=== PATIENT | female | born 1935 | race Caucasian/White ===

== ENCOUNTER → 2018-03-04 14:16 | Outpatient (CLI) | payer MEDICARE, SELFPAY ==
--- NOTE | 2018-03-04 | DI.RAD.S_ITS ---
PROCEDURE: XR KNEE LT 3V INDICATIONS: LEFT KNEE PAIN AND SWELLING TECHNIQUE: The views of the knee were acquired. COMPARISON: [facility], , KNEE 3V LEFT, 01/04/2013, 19:29. FINDINGS: Bones: No fractures or dislocations. No suspicious bony lesions. 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 There is mild tricompartmental joint and periarticular osteophyte formation. Soft tissues: No joint effusion. No suspicious soft tissue calcifications. IMPRESSION: 1. 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 Dictated by: Sekou Ledezma [facility] Interpreted: Maxine Garcia MD on 03/04/2018 at 15:19 Approved by: Maxine Garcia M.D. on 03/04/2018 at 16:28
[2018-03-04 15:05] LABS: Add Manual Diff / Slide Review NO; Basophils Percent Auto 1.2 % (0-2); Eosinophils Percent Auto 4.4 % (2-4); Hematocrit 44.1 % (36-46); Hemoglobin 14.8 g/dL (12.0-16.0); Lymphocytes Percent Auto 33.5 % (25-40); Mean Corpuscular HGB Conc 33.5 % (30-36); Mean Corpuscular Hemoglobin 32.2 PG (26-34); Monocytes Percent Auto 12.7 % (3-14); Neutrophils Absolute Auto 2300 /uL (3000-5900); Neutrophils Percent Auto 48.2 % (50-75); Platelet Count 251 X10^3/uL (150-400); Red Blood Cell Count 4.59 X10^6/uL (4.0-5.2); White Blood Cell Count 4.8 X10^3/uL (4.5-11.0)
[2018-03-04 15:36] LABS: BUN Creatinine Ratio 19.1 (6-22); Blood Urea Nitrogen 21 mg/dL (7-17); Calcium 9.4 mg/dL (8.4-10.2); Carbon Dioxide 26 mmol/L (22-32); Chloride 103 mmol/L (98-107); Estimated Glomerular Filt Rate 47.6 mL/min (>60); Glucose 141 mg/dL (80-110); HEMOLYSIS < 15 (0-50); Potassium 4.3 mmol/L (3.4-5.1); Sodium 140 mmol/L (137-145)
== END ==
PROVIDERS: PCP Internal Medicine; Visit Provider Registered Nurse
DX: M25.562 Pain in left knee (principal); Z00.00 Encounter for general adult medical examination without abnormal findings
CPT/HCPCS: 36415; 73562; 80048; 85025

== ENCOUNTER 2018-04-03 02:16 | Emergency (ER) | payer MEDICARE, SELFPAY ==
--- NOTE | 2018-04-03 02:18 | DI.CT.S_ITS ---
PROCEDURE: CT HEAD/BRAIN WO CON INDICATIONS: fall with head injury TECHNIQUE: Noncontrast 4.5 mm thick angled axial sections acquired from the foramen magnum to the vertex, with coronal and sagittal reformats. For radiation dose reduction, the following was used: automated exposure control, adjustment of mA and/or kV according to patient size. COMPARISON: [facility], CT, HEAD WITHOUT CONTRAST, 10/07/2016, 11:44. FINDINGS: Image quality: Excellent. CSF spaces: Basal cisterns are patent. No extra-axial fluid collections. The ventricles are symmetric in size and shape. Brain: No intracranial bleeds or masses. There is marked cerebral volume loss for age, with resultant ventricular and sulcal prominence. There are extensive periventricular and deep white matter chronic small vessel ischemic changes. Encephalomalacia is present within the left frontal lobe consistent with old infarct.. There is intracranial internal carotid artery atherosclerosis. Skull and face: Calvarium and visualized facial bones appear intact, without suspicious lesions. Sinuses: Visualized sinuses and mastoids are clear. IMPRESSION: 1. No acute intracranial findings. 2. Extensive findings likely associated with chronic microvascular ischemic changes and old left frontal infarct. These findings are concordant with the overnight interpretation. Dictated by: Vivian Ga M.D. on 04/03/2018 at 9:14 Approved by: Vivian Ga M.D. on 04/03/2018 at 9:17
[2018-04-03 02:50] VITALS: BP 179/77; PULSE 90; RESP 14; TEMP 36.8; O2SAT 99
--- NOTE | 2018-04-03 02:52 | ED_ITS ---
HPI - Fall General Chief Complaint: Fall Stated Complaint: GLF Time Seen by Provider: 04/03/18 02:18 Source: EMS Mode of arrival: EMS Limitations: no limitations History of Present Illness HPI Narrative: 83-year-old female with dementia presents by EMS from a local nursing facility for evaluation of an unwitnessed fall and head injury. The patient is not anticoagulated denies any injury. She is awake and oriented per her baseline and was sent by the nursing facility for evaluation of head injury. MD complaint: fall Onset (ago): minute(s) Fall from: out of bed Fall witnessed: no Place fall occurred: home Loss of consciousness: unsure Prolonged down time: unclear Location of injury: head Associated symptoms (after fall): denies Related Data Previous Rx's Medication Instructions Recorded ascorbic acid (vitamin C) 500 mg PO QDAY #28 tab 11/26/16 acetaminophen 325 mg PO QIDP PRN #30 tab 12/01/16 lorazepam 1 tab PO BIDP PRN #60 tab 12/04/16 acetaminophen 325 mg PO QIDP PRN #30 tab 04/01/17 Allergies Allergy/AdvReac Type Severity Reaction Status Date / Time lisinopril Allergy Severe AIRWAY Unverified 11/11/17 13:09 BLOCKAGE adhesive Allergy Unknown FROM TAPE Unverified 11/11/17 13:09 Review of Systems Review of Systems All systems reviewed & are unremarkable except as noted in HPI and below Constitutional Denies chills, Denies fever(s), Denies lethargy and Denies weakness Eyes Denies change in vision, Denies eye discharge, Denies irritation and Denies loss of vision ENT Ears, Nose, Mouth, and Throat: Denies change in voice, Denies neck pain and Denies sore throat Cardiovascular Denies chest pain, Denies irregular heart rhythm, Denies lightheadedness, Denies palpitations, Denies dyspnea, Denies dyspnea on exertion and Denies orthopnea Respiratory Denies cough, Denies dyspnea, Denies dyspnea on exertion and Denies wheezing Gastrointestinal Gastrointestinal: Denies abdominal pain, Denies change in bowel habits, Denies diarrhea, Denies nausea and Denies vomiting Genitourinary Denies hematuria, Denies flank pain, Denies urinary incontinence and Denies urinary urgency Musculoskeletal Denies neck pain Integumentary/Breasts Denies pruritus, Denies erythema, Denies rash and Denies wounds Neurologic Denies confusion, Denies loss of vision and Denies weakness Psychiatric Denies anxiety, Denies confusion, Denies depression, Denies homicidal ideation and Denies suicidal ideation Endocrine Denies palpitations Hematologic/Lymphatic Denies easy bruising Allergic/Immunologic Denies wheezing Exam Initial Vital Signs Initial Vital Signs: Vital Signs Temperature 98.2 F 04/03/18 02:50 Pulse Rate 90 04/03/18 02:50 Respiratory Rate 14 04/03/18 02:50 Blood Pressure 179/77 H 04/03/18 02:50 Pulse Oximetry 99 04/03/18 02:50 Const General: cooperative and well developed Nutritional Appearance: well nourished Orientation: alert, awake, oriented x3 and not confused HENMT Head: hematoma (Occiput, small) Ears: external ears normal and TM's normal bilaterally Nose: external nose normal and No nasal discharge Face and sinus: sinuses nontender, face symmetric, no sinus tenderness and No dry mucous membranes Mouth: oral mucosae normal and moist mucous membranes Teeth and gingiva: dentition normal Throat: tonsils normal and uvula midline Eyes General: appearance normal, both eyes and all related structures Eyelids: eyelids normal Conjunctivae: conjunctivae normal Sclera: sclerae normal Pupils: PERRL EOM: EOM intact bilaterally Neck Neck: normal visual inspection, trachea midline, No lymphadenopathy, No midline deformity and No JVD Lymphatic: No lymphedema Chest Chest: normal inspection of the chest Resp Effort & Inspection: normal respiratory effort, able to speak in complete sentences, no respiratory distress and no use of accessory muscles Auscultation: clear to auscultation bilaterally, no rales, no rhonchi and no wheezes Cardio Rate: regular rate Rhythm: regular rhythm Heart Sounds: no click, no gallops, no murmurs and no rubs Pulses: normal peripheral pulses GI Inspection: non-distended Palpation: soft, no hepatosplenomegaly, No guarding, No pulsatile mass and No tender Auscultation: normal bowel sounds Back/Spine/Pelvis Back: No CVA tenderness Cervical Spine: cervical ROM normal and No pain with cervical ROM Thoracic/Lumbar Spine: thoracic and lumbar spine normal to inspection Skin General: no rashes or lesions noted, No jaundice and No petechiae Neuro General: alert and no focal motor deficits Speech: speech normal Extrem General: full ROM, no clubbing, cyanosis or edema, no pedal edema and no calf tenderness Psych Appearance: well kempt Mental Status: mental status grossly normal Attitude: cooperative Thought Content: normal and suicidality Judgment: judgment good [facility] Surgical History History of bladder suspension procedure History of tonsillectomy Family History Father Cancer Scores GCS Josette coma scale eye opening: Spontaneous [place] coma scale verbal response: Orientated [place] coma scale motor response: Obey commands [place] coma scale total score: 15 Course Orders Ordered: ED Orders 04/03/18 02:18 CT head/brain wo con Stat Vital Signs - 8 hr 04/03/18 02:50 Temperature 98.2 F Pulse Rate 90 Respiratory Rate 14 Blood Pressure 179/77 H Pulse Oximetry 99 MDM - Fall Differential Diagnosis Likely syncope, concussion with loss of consciousness and concussion without loss of consciousness Medical Records Attestation: I reviewed the patient's medical records. Imaging Data CT scan - head: Radiologist's impression: No bleed Discharge Plan Departure Patient Disposition: Home Clinical Impression: Hematoma of scalp Instructions: DI for Hematoma (Bruise) Activity Restrictions/Additional Instructions: *You have been diagnosed with [ scalp hematoma] *What to do: * continue to take medications as directed *Follow up with your primary care provider in 2-3 days, call for an appointment. Let them know you were seen in the Emergency Department and that we ask that you be seen in follow up *Return to ER if you should have any new, worsening or concerning symptoms , such as [headache, persistent vomiting, focal neurologic findings consistent with stroke ] Prescriptions: No Action ascorbic acid (vitamin C) 500 MG tablet 500 mg PO QDAY Qty: 28 RF: 0 acetaminophen 325 MG tablet 325 mg PO QIDP PRNQty: 30 RF: 1 lorazepam 0.5 MG tablet 1 tab PO BIDP PRNQty: 60 RF: 0 acetaminophen 325 MG tablet 325 mg PO QIDP PRNQty: 30 RF: 3 Referrals: Anya Jesus MD [Primary Care Provider] -
[2018-04-03 04:03] VITALS: BP 142/98; PULSE 69; RESP 15; O2SAT 100
== END 2018-04-03 04:52 | disposition home or self-care (01) ==
PROVIDERS: Emergency Provider Emergency Medicine; PCP Internal Medicine
DX: S00.03XA Contusion of scalp, initial encounter (principal); W19.XXXA Unspecified fall, initial encounter
CPT/HCPCS: 70450; 99282; 99283

== ENCOUNTER → 2018-08-06 16:38 | Outpatient (CLI) | payer MEDICARE, SELFPAY ==
[2018-08-06 19:06] LABS: Adenovirus F 40/41 Not Detected (Not Detect); Astrovirus Not Detected (Not Detect); Campylobacter Not Detected (Not Detect); Clostridium difficile toxin AB Not Detected (Not Detect); Cryptosporidium Not Detected (Not Detect); Cyclospora cayetanensis Not Detected (Not Detect); Entamoeba histolytica Not Detected (Not Detect); Enteroaggregative E.coli Not Detected (Not Detect); Enteropathogenic E.coli Not Detected (Not Detect); Enterotoxigenic E.coli It/st Not Detected (Not Detect); Giardia lamblia Not Detected (Not Detect); Plesiomonsa shigelloides Not Detected (Not Detect); Salmonella Not Detected (Not Detect); Shiga-like toxin-prod E.coli Not Detected (Not Detect); Shigella/Enteroinvasive E.coli Not Detected (Not Detect); Vibrio Not Detected (Not Detect); Vibrio cholerae Not Detected (Not Detect); Yersinia enterocolitica Not Detected (Not Detect)
[2018-08-06 19:07] LABS: Norovirus GI/GII Detected (Not Detect); Rotavirus A Not Detected (Not Detect); Sapovirus Not Detected (Not Detect)
== END ==
PROVIDERS: PCP Internal Medicine; Visit Provider Registered Nurse
DX: R19.7 Diarrhea, unspecified (principal)
CPT/HCPCS: 87507

== ENCOUNTER → 2018-08-12 10:34 | Outpatient (CLI) | payer MEDICARE, SELFPAY ==
[2018-08-12 12:06] LABS: Add Manual Diff / Slide Review NO; Basophils Percent Auto 0.7 % (0-2); Eosinophils Percent Auto 2.4 % (2-4); Hematocrit 47.9 % (36-46); Hemoglobin 16.2 g/dL (12.0-16.0); Mean Corpuscular HGB Conc 33.8 % (30-36); Mean Corpuscular Hemoglobin 31.6 PG (26-34); Mean Corpuscular Volume 93.4 fL (80-100); Monocytes Percent Auto 12.4 % (3-14); Neutrophils Absolute Auto 2800 /uL (1500-7000); Neutrophils Percent Auto 50.5 % (50-75); Platelet Count 244 X10^3/uL (150-400); Red Blood Cell Count 5.12 X10^6/uL (4.0-5.2); Red Cell Distribution Width 13.4 % (11.6-14.8); White Blood Cell Count 5.6 X10^3/uL (4.5-11.0)
[2018-08-12 12:20] LABS: Blood Urea Nitrogen 19 mg/dL (7-17); Calcium 9.5 mg/dL (8.4-10.2); Carbon Dioxide 24 mmol/L (22-32); Chloride 105 mmol/L (98-107); Glucose 73 mg/dL (80-110); Sodium 139 mmol/L (137-145)
[2018-08-12 12:24] LABS: HEMOLYSIS 67 (0-50); Potassium 4.8 mmol/L (3.4-5.1)
== END ==
PROVIDERS: PCP Internal Medicine; Visit Provider Registered Nurse
DX: R03.0 Elevated blood-pressure reading, without diagnosis of hypertension (principal); R35.0 Frequency of micturition
CPT/HCPCS: 36415; 80048; 85025

== ENCOUNTER 2018-09-07 10:31 | Emergency (ER) | payer MEDICARE, SELFPAY ==
[2018-09-07 10:30] VITALS: BP 153/106; PULSE 74; RESP 19; TEMP 36.7; O2SAT 97
--- NOTE | 2018-09-07 10:35 | ED.HEATRA ---
HPI - Head Injury General Chief complaint: Fall Stated complaint: Fall Time Seen by Provider: 09/07/18 10:33 Source: patient and EMS Mode of arrival: EMS Limitations: no limitations History of Present Illness HPI Narrative: 83-year-old female nonsmoker presents by EMS from a [facility] care facility for evaluation of an unwitnessed fall just prior to arrival. She struck her head but had no loss of consciousness and has had no vomiting. She had initially complained of some right knee and ankle pain but that has since gone. It is unclear how she fell but it seems that maybe she tripped on her walker. She is awake and alert and oriented and takes no blood thinners. Complaint: head injury Onset (ago): minute(s) Mechanism of Injury: unsure Place: home Loss of Consciousness: no Location of injury: frontal Severity: mild Radiation: none Other Injuries: none Associated symptoms: denies other symptoms Related Data Home Medications Medication Instructions Recorded Confirmed Antacid Anti-Gas 30 ml PO Q4H PRN 09/07/18 09/07/18 Enema 133 ml IN PRN PRN 09/07/18 09/07/18 acetaminophen 650 mg PO Q4H PRN MDD 3 gm 09/07/18 09/07/18 acetaminophen 650 mg IN Q4H PRN MDD 3 gm 09/07/18 09/07/18 bisacodyl 10 mg IN PRN PRN 09/07/18 09/07/18 bismuth subsalicylate 30 ml PO PRN PRN 09/07/18 09/07/18 [Pepto-Bismol] dimethicone [Durable Barrier] 1 applic TOPICAL DIRECTED 09/07/18 09/07/18 lorazepam 0.5 tab PO BID PRN 09/07/18 09/07/18 magnesium hydroxide [Milk of 30 ml PO PRN PRN 09/07/18 09/07/18 Magnesia] ondansetron 4 mg PO Q4H PRN 09/07/18 09/07/18 Allergies Allergy/AdvReac Type Severity Reaction Status Date / Time lisinopril Allergy Severe AIRWAY Verified 09/07/18 10:37 BLOCKAGE adhesive Allergy Unknown FROM TAPE Verified 09/07/18 10:37 Review of Systems Constitutional Denies chills, Denies fever(s), Denies lethargy and Denies weakness Eyes Denies change in vision, Denies eye discharge, Denies irritation and Denies loss of vision ENT Ears, Nose, Mouth, and Throat: Denies change in voice, Denies neck pain and Denies sore throat Cardiovascular Denies chest pain, Denies irregular heart rhythm, Denies lightheadedness, Denies palpitations, Denies dyspnea, Denies dyspnea on exertion and Denies orthopnea Respiratory Denies cough, Denies dyspnea, Denies dyspnea on exertion and Denies wheezing Gastrointestinal Gastrointestinal: Denies abdominal pain, Denies change in bowel habits, Denies diarrhea, Denies nausea and Denies vomiting Genitourinary Denies hematuria, Denies flank pain, Denies urinary incontinence and Denies urinary urgency Musculoskeletal Denies neck pain Integumentary/Breasts Denies pruritus, Denies erythema, Denies rash, Reports unusual bruising and Denies wounds Neurologic Denies confusion, Denies loss of vision and Denies weakness Psychiatric Denies anxiety, Denies confusion, Denies depression, Denies homicidal ideation and Denies suicidal ideation Endocrine Denies palpitations Hematologic/Lymphatic Denies easy bruising Allergic/Immunologic Denies wheezing PFSH Surgical History History of bladder suspension procedure History of tonsillectomy Family History Father Cancer Family History Father Cancer Exam Narrative Exam Narrative: GENERAL: 83-year-old female pleasantly confused, alert, GCS 15 HEAD: Mild bruising lateral to right eye and non zygoma but no step-off or crepitance. EYES: Pupils equal round and reactive. Extraocular motions intact. No scleral icterus. No injection or drainage. ENT: Nose without bleeding, purulent drainage or septal hematoma. Throat without erythema, tonsillar hypertrophy or exudate. Uvula midline. Airway patent. NECK: Trachea midline. No JVD or lymphadenopathy. Supple, nontender, no meningeal signs. CARDIOVASCULAR: Regular rate and rhythm without murmurs, gallops, or rubs. RESPIRATORY: Clear to auscultation. Breath sounds equal bilaterally. No wheezes, rales, or rhonchi. GASTROINTESTINAL: Abdomen soft, non-tender, nondistended. No hepato-splenomegaly, or palpable masses. No guarding. EXTREMITIES: Full painless range of motion of right knee and ankle, no ecchymosis, effusion or deformity. No imaging needed BACK: Nontender without deformity or crepitance. No flank tenderness SKIN: No rash or erythema. Initial Vital Signs Initial Vital Signs: Vital Signs Temperature 98.0 F 09/07/18 10:30 Pulse Rate 74 09/07/18 10:30 Respiratory Rate 19 09/07/18 10:30 Blood Pressure 153/106 H 09/07/18 10:30 Pulse Oximetry 97 09/07/18 10:30 Course Orders Ordered: ED Orders 09/07/18 10:43 CT head/brain wo con Stat Reevaluation(s) Reevaluation #1: patient able to ambulate without difficulty, and no apparent pain in knee/ankle Vital Signs - 8 hr 09/07/18 12:21 Pulse Rate 86 Respiratory Rate 14 Blood Pressure 121/74 Pulse Oximetry 96 Discharge Plan Departure Patient Disposition: Home Clinical Impression: Contusion of face, Contusion of knee, Ankle sprain Discharge Date/Time: 09/07/18 12:22 Interventions: ED Discharge Assessment Last Done: 09/07/18 12:21 Instructions: DI for Contusion Activity Restrictions/Additional Instructions: *You have been diagnosed with [fall with facial contusion, knee contusion, ankle sprain ] *What to do: *Take medications as directed *Follow up with your primary care provider in 2-3 days, call for an appointment. Let them know you were seen in the Emergency Department and that we ask that you be seen in follow up *Return to ER if you should have any new, worsening or concerning symptoms Prescriptions: No Action Antacid Anti-Gas 30 ml PO Q4H PRN (Reason: nausea or heartburn) RF: 0 acetaminophen 650 mg Suppository 650 mg IN Q4H MDD 3 gm PRN (Reason: Fever Or Pain) RF: 0 magnesium hydroxide [Milk of Magnesia] 400 mg/5 mL Suspension 30 ml PO PRN PRN (Reason: Constipation) RF: 0 bisacodyl 10 mg Suppository 10 mg IN PRN PRN (Reason: Constipation) RF: 0 bismuth subsalicylate [Pepto-Bismol] 262 mg/15 mL Suspension 30 ml PO PRN PRN (Reason: Diarrhea) RF: 0 ondansetron 4 mg Tablet,Disintegrating 4 mg PO Q4H PRN (Reason: Nausea And Vomiting) RF: 0 dimethicone [Durable Barrier] 1.3 % Cream 1 applic Topical DIRECTED RF: 0 Enema 133 ml IN PRN PRN (Reason: Constipation) RF: 0 acetaminophen 325 MG tablet 650 mg PO Q4H MDD 3 gm PRN (Reason: Fever Or Pain) RF: 0 lorazepam 0.5 MG tablet 0.5 tab PO BID PRN (Reason: Anxiety) RF: 0 Referrals: Anya Jesus MD [Primary Care Provider] -
[2018-09-07 10:37] VITALS: BMI 24.1
--- NOTE | 2018-09-07 10:40 | ED_ITS ---
HPI - Head Injury General Chief complaint: Fall Stated complaint: Fall Time Seen by Provider: 09/07/18 10:33 Source: patient and EMS Mode of arrival: EMS Limitations: no limitations History of Present Illness HPI Narrative: 83-year-old female nonsmoker presents by EMS from a [facility] care facility for evaluation of an unwitnessed fall just prior to arrival. She struck her head but had no loss of consciousness and has had no vomiting. She had initially complained of some right knee and ankle pain but that has since gone. It is unclear how she fell but it seems that maybe she tripped on her walker. She is awake and alert and oriented and takes no blood thinners. Complaint: head injury Onset (ago): minute(s) Mechanism of Injury: unsure Place: home Loss of Consciousness: no Location of injury: frontal Severity: mild Radiation: none Other Injuries: none Associated symptoms: denies other symptoms Related Data Home Medications Medication Instructions Recorded Confirmed Antacid Anti-Gas 30 ml PO Q4H PRN 09/07/18 09/07/18 Enema 133 ml CO PRN PRN 09/07/18 09/07/18 acetaminophen 650 mg PO Q4H PRN MDD 3 gm 09/07/18 09/07/18 acetaminophen 650 mg CO Q4H PRN MDD 3 gm 09/07/18 09/07/18 bisacodyl 10 mg CO PRN PRN 09/07/18 09/07/18 bismuth subsalicylate 30 ml PO PRN PRN 09/07/18 09/07/18 [Pepto-Bismol] dimethicone [Durable Barrier] 1 applic TOPICAL DIRECTED 09/07/18 09/07/18 lorazepam 0.5 tab PO BID PRN 09/07/18 09/07/18 magnesium hydroxide [Milk of 30 ml PO PRN PRN 09/07/18 09/07/18 Magnesia] ondansetron 4 mg PO Q4H PRN 09/07/18 09/07/18 Allergies Allergy/AdvReac Type Severity Reaction Status Date / Time lisinopril Allergy Severe AIRWAY Verified 09/07/18 10:37 BLOCKAGE adhesive Allergy Unknown FROM TAPE Verified 09/07/18 10:37 Review of Systems Constitutional Denies chills, Denies fever(s), Denies lethargy and Denies weakness Eyes Denies change in vision, Denies eye discharge, Denies irritation and Denies loss of vision ENT Ears, Nose, Mouth, and Throat: Denies change in voice, Denies neck pain and Denies sore throat Cardiovascular Denies chest pain, Denies irregular heart rhythm, Denies lightheadedness, Denies palpitations, Denies dyspnea, Denies dyspnea on exertion and Denies orthopnea Respiratory Denies cough, Denies dyspnea, Denies dyspnea on exertion and Denies wheezing Gastrointestinal Gastrointestinal: Denies abdominal pain, Denies change in bowel habits, Denies diarrhea, Denies nausea and Denies vomiting Genitourinary Denies hematuria, Denies flank pain, Denies urinary incontinence and Denies urinary urgency Musculoskeletal Denies neck pain Integumentary/Breasts Denies pruritus, Denies erythema, Denies rash, Reports unusual bruising and Denies wounds Neurologic Denies confusion, Denies loss of vision and Denies weakness Psychiatric Denies anxiety, Denies confusion, Denies depression, Denies homicidal ideation and Denies suicidal ideation Endocrine Denies palpitations Hematologic/Lymphatic Denies easy bruising Allergic/Immunologic Denies wheezing PFSH Surgical History History of bladder suspension procedure History of tonsillectomy Family History Father Cancer Family History Father Cancer Exam Narrative Exam Narrative: GENERAL: 83-year-old female pleasantly confused, alert, GCS 15 HEAD: Mild bruising lateral to right eye and non zygoma but no step-off or crepitance. EYES: Pupils equal round and reactive. Extraocular motions intact. No scleral icterus. No injection or drainage. ENT: Nose without bleeding, purulent drainage or septal hematoma. Throat without erythema, tonsillar hypertrophy or exudate. Uvula midline. Airway patent. NECK: Trachea midline. No JVD or lymphadenopathy. Supple, nontender, no meningeal signs. CARDIOVASCULAR: Regular rate and rhythm without murmurs, gallops, or rubs. RESPIRATORY: Clear to auscultation. Breath sounds equal bilaterally. No wheezes , rales, or rhonchi. GASTROINTESTINAL: Abdomen soft, non-tender, nondistended. No hepato-splenomegaly , or palpable masses. No guarding. EXTREMITIES: Full painless range of motion of right knee and ankle, no ecchymosis, effusion or deformity. No imaging needed BACK: Nontender without deformity or crepitance. No flank tenderness SKIN: No rash or erythema. Initial Vital Signs Initial Vital Signs: Vital Signs Temperature 98.0 F 09/07/18 10:30 Pulse Rate 74 09/07/18 10:30 Respiratory Rate 19 09/07/18 10:30 Blood Pressure 153/106 H 09/07/18 10:30 Pulse Oximetry 97 09/07/18 10:30 Course Orders Ordered: ED Orders 09/07/18 10:43 CT head/brain wo con Stat Reevaluation(s) Reevaluation #1: patient able to ambulate without difficulty, and no apparent pain in knee/ankle Vital Signs - 8 hr 09/07/18 12:21 Pulse Rate 86 Respiratory Rate 14 Blood Pressure 121/74 Pulse Oximetry 96 Discharge Plan Departure Patient Disposition: Home Clinical Impression: Contusion of face, Contusion of knee, Ankle sprain Discharge Date/Time: 09/07/18 12:22 Interventions: ED Discharge Assessment Last Done: 09/07/18 12:21 Instructions: DI for Contusion Activity Restrictions/Additional Instructions: *You have been diagnosed with [fall with facial contusion, knee contusion, ankle sprain ] *What to do: *Take medications as directed *Follow up with your primary care provider in 2-3 days, call for an appointment. Let them know you were seen in the Emergency Department and that we ask that you be seen in follow up *Return to ER if you should have any new, worsening or concerning symptoms Prescriptions: No Action Antacid Anti-Gas 30 ml PO Q4H PRN (Reason: nausea or heartburn) RF: 0 acetaminophen 650 mg Suppository 650 mg CO Q4H MDD 3 gm PRN (Reason: Fever Or Pain) RF: 0 magnesium hydroxide [Milk of Magnesia] 400 mg/5 mL Suspension 30 ml PO PRN PRN (Reason: Constipation) RF: 0 bisacodyl 10 mg Suppository 10 mg CO PRN PRN (Reason: Constipation) RF: 0 bismuth subsalicylate [Pepto-Bismol] 262 mg/15 mL Suspension 30 ml PO PRN PRN (Reason: Diarrhea) RF: 0 ondansetron 4 mg Tablet,Disintegrating 4 mg PO Q4H PRN (Reason: Nausea And Vomiting) RF: 0 dimethicone [Durable Barrier] 1.3 % Cream 1 applic Topical DIRECTED RF: 0 Enema 133 ml CO PRN PRN (Reason: Constipation) RF: 0 acetaminophen 325 MG tablet 650 mg PO Q4H MDD 3 gm PRN (Reason: Fever Or Pain) RF: 0 lorazepam 0.5 MG tablet 0.5 tab PO BID PRN (Reason: Anxiety) RF: 0 Referrals: Anya Jesus MD [Primary Care Provider] -
--- NOTE | 2018-09-07 10:43 | DI.CT.S_ITS ---
PROCEDURE: CT HEAD/BRAIN WO CON INDICATIONS: fall with head injury TECHNIQUE: Noncontrast 4.5 mm thick angled axial sections acquired from the foramen magnum to the vertex, with coronal and sagittal reformats. For radiation dose reduction, the following was used: automated exposure control, adjustment of mA and/or kV according to patient size. COMPARISON: [facility], CT, CT HEAD/BRAIN WO CON, 04/03/2018, 2:28. FINDINGS: Image quality: Excellent. CSF spaces: Basal cisterns are patent. No extra-axial fluid collections. The ventricles are symmetric in size and shape. Brain: No intracranial bleeds or masses. There is mild cerebral volume loss for age, with resultant ventricular and sulcal prominence. There are severe periventricular and deep white matter chronic small vessel ischemic changes. Chronic, small, left parietal infarct is stable compared to prior examination. Small, chronic pontine lacunar infarct is stable. There is intracranial internal carotid artery atherosclerosis. Skull and face: Calvarium and visualized facial bones appear intact, without suspicious lesions. Sinuses: Visualized sinuses and mastoids are clear. IMPRESSION: 1. No acute intracranial disease process. 2. No intracranial hemorrhage. 3. No fracture. Dictated by: Chastity Reinoso MD, PhD on 09/07/2018 at 10:49 Approved by: Chastity Reinoso MD, PhD on 09/07/2018 at 10:52
--- NOTE | 2018-09-07 12:20 | PC.NURSE ---
Patient denies pain or dizziness with ambulation.
[2018-09-07 12:21] VITALS: BP 121/74; PULSE 86; RESP 14; O2SAT 96
== END 2018-09-07 12:22 | disposition home or self-care (01) ==
PROVIDERS: Emergency Provider Emergency Medicine; PCP Internal Medicine
DX: S00.83XA Contusion of other part of head, initial encounter (principal); S80.01XA Contusion of right knee, initial encounter; S93.401A Sprain of unspecified ligament of right ankle, initial encounter; W18.43XA Slipping, tripping and stumbling without falling due to stepping from one level to another, initial encounter
CPT/HCPCS: 70450; 99282; 99284

== ENCOUNTER → 2019-01-04 15:03 | Outpatient (ROUT) | payer MEDICARE, SELFPAY ==
[2019-01-04 15:06] LABS: Bacteria Urine None Seen; RBC Urine None Seen (0-5/HPF)
[2019-01-04 15:09] LABS: Appearance Urine UA CLEAR; Bilirubin Urine UA NEGATIVE (NEGATIVE); Color Urine UA YELLOW; Glucose Urine UA NEGATIVE (Negative); Ketones Urine UA NEGATIVE (NEGATIVE); Leukocyte Esterase Urine UA NEGATIVE (NEGATIVE); Nitrite Urine UA NEGATIVE (Negative); Occult Blood Urine UA NEGATIVE (Negative); Protein Urine UA NEGATIVE (Negative); Specific Gravity Urine UA 1.015 (1.000-1.035); Urobilinogen Urine UA 0.2 E.U./dL (0.2)
[2019-01-04 16:18] LABS: Culture Indicated Urine Cult Not Indicated; Squamous Epithelial Cell Urine 0-1 /HPF (0-5/HPF); WBC Urine 0-1/HPF (0-5/HPF)
== END ==
PROVIDERS: PCP Internal Medicine; Visit Provider Nurse Practitioner Family
DX: R33.0 Drug induced retention of urine (principal)
CPT/HCPCS: 81001

== ENCOUNTER → 2019-01-14 17:02 | Outpatient (CLI) | payer MEDICARE, SELFPAY ==
[2019-01-18 18:02] LABS: Fecal Immunochemical Test NOT DETECTED (NOT DETECTED)
== END ==
PROVIDERS: PCP Internal Medicine; Visit Provider Internal Medicine
DX: Z12.11 Encounter for screening for malignant neoplasm of colon (principal)
CPT/HCPCS: 82274

== ENCOUNTER → 2019-01-21 09:21 | Outpatient (CLI) | payer MEDICARE, SELFPAY ==
[2019-01-21 10:06] LABS: Add Manual Diff / Slide Review NO; Basophils Absolute Auto 100 /uL (0-100); Basophils Percent Auto 1.2 % (0-2); Eosinophils Absolute Auto 200 /uL (0-450); Hematocrit 48.8 % (36-46); Hemoglobin 16.4 g/dL (12.0-16.0); Lymphocytes Absolute Auto 1800 /uL (1100-4500); Lymphocytes Percent Auto 34.1 % (25-40); Mean Corpuscular HGB Conc 33.6 % (30-36); Mean Corpuscular Volume 95.3 fL (80-100); Monocytes Absolute Auto 600 /uL (0-900); Monocytes Percent Auto 11.2 % (3-14); Neutrophils Absolute Auto 2700 /uL (1500-7000); Neutrophils Percent Auto 50.5 % (50-75); Platelet Count 244 X10^3/uL (150-400); Red Blood Cell Count 5.11 X10^6/uL (4.0-5.2); Red Cell Distribution Width 13.5 % (11.6-14.8); White Blood Cell Count 5.3 X10^3/uL (4.5-11.0)
[2019-01-21 10:39] LABS: Blood Urea Nitrogen 22 mg/dL (7-17); Calcium 9.8 mg/dL (8.4-10.2); Carbon Dioxide 30 mmol/L (22-32); Chloride 105 mmol/L (98-107); Estimated Glomerular Filt Rate 47.4 mL/min (>60); Glucose 93 mg/dL (80-110); HEMOLYSIS 16 (0-50); Potassium 4.2 mmol/L (3.4-5.1); Sodium 143 mmol/L (137-145)
[2019-01-21 11:08] LABS: Thyroid Stimulating Hormone 2.92 uIU/mL (0.47-4.68)
[2019-01-21 11:25] LABS: Vitamin B12 320 pg/mL (239-931)
== END ==
PROVIDERS: Visit Provider Registered Nurse
DX: I12.9 Hypertensive chronic kidney disease with stage 1 through stage 4 chronic kidney disease, or unspecified chronic kidney disease (principal); D64.9 Anemia, unspecified
CPT/HCPCS: 36415; 80048; 82607; 84443; 85025

== ENCOUNTER → 2019-01-31 15:32 | Outpatient (CLI) | payer MEDICARE, SELFPAY ==
--- NOTE | 2019-01-31 15:35 | DI.CT.S_ITS ---
PROCEDURE: CT HEAD/BRAIN WO CON INDICATIONS: Aphasia TECHNIQUE: Noncontrast 4.5 mm thick angled axial sections acquired from the foramen magnum to the vertex, with coronal and sagittal reformats. For radiation dose reduction, the following was used: automated exposure control, adjustment of mA and/or kV according to patient size. COMPARISON: [facility], CT, CT HEAD/BRAIN WO CON, 09/07/2018, 10:27. FINDINGS: Image quality: Excellent. CSF spaces: Basal cisterns are patent. No extra-axial fluid collections. The ventricles are symmetric in size and shape. Brain: No intracranial bleeds or masses. Chronic appearing encephalomalacia involving the left frontal lobe at the vertex, stable appearance 09/07/18. Sub-5 mm hypodensity within the right glenn appears grossly stable to somewhat less conspicuous since the prior study. There is cerebral volume loss for age, with resultant ventricular and sulcal prominence. There are periventricular and deep white matter chronic small vessel ischemic changes. There is intracranial internal carotid artery atherosclerosis. Skull and face: Calvarium and visualized facial bones appear intact, without suspicious lesions. Sinuses: Visualized sinuses and mastoids are clear. IMPRESSION: No acute intracranial process, or interval change. Dictated by: Du Yeager M.D. on 01/31/2019 at 16:25 Approved by: Du Yeager M.D. on 01/31/2019 at 16:27
== END ==
PROVIDERS: Visit Provider Nurse Practitioner Family
DX: R47.01 Aphasia (principal)
CPT/HCPCS: 70450

== ENCOUNTER → 2019-05-06 12:58 | Outpatient (ROUT) | payer MEDICARE, SELFPAY ==
[2019-05-06 13:05] LABS: Appearance Urine UA SL CLOUDY; Bilirubin Urine UA NEGATIVE (NEGATIVE); Color Urine UA YELLOW; Glucose Urine UA NEGATIVE (Negative); Ketones Urine UA NEGATIVE (NEGATIVE); Leukocyte Esterase Urine UA NEGATIVE (NEGATIVE); Nitrite Urine UA NEGATIVE (Negative); Occult Blood Urine UA TRACE-LYSED (Negative); Protein Urine UA NEGATIVE (Negative); Urobilinogen Urine UA 0.2 E.U./dL (0.2)
[2019-05-06 13:11] LABS: pH Urine UA 5.5 (4.5-8.0)
[2019-05-06 13:18] LABS: Amorphous Sediment Urine 1+; Bacteria Urine Occasional (0-1); Culture Indicated Urine Cult Not Indicated; Mucus Urine 1+ (Negative); RBC Urine 0-1/HPF (0-5/HPF); Squamous Epithelial Cell Urine 1-5 /HPF (0-5/HPF); WBC Urine 1-5/HPF (0-5/HPF)
== END ==
PROVIDERS: Visit Provider Nurse Practitioner Family
DX: R10.9 Unspecified abdominal pain (principal); R11.0 Nausea
CPT/HCPCS: 81001

== ENCOUNTER → 2019-11-24 08:58 | Outpatient (CLI) | payer MEDICARE, SELFPAY ==
[2019-11-24 09:29] LABS: Add Manual Diff / Slide Review NO; Basophils Absolute Auto 100 /uL (0-100); Basophils Percent Auto 0.7 % (0-2); Eosinophils Absolute Auto 100 /uL (0-450); Eosinophils Percent Auto 1.8 % (2-4); Hematocrit 49.2 % (36-46); Hemoglobin 16.8 g/dL (12.0-16.0); Lymphocytes Absolute Auto 1300 /uL (1100-4500); Lymphocytes Percent Auto 17.9 % (25-40); Mean Corpuscular HGB Conc 34.2 % (30-36); Mean Corpuscular Hemoglobin 32.1 PG (26-34); Mean Corpuscular Volume 93.9 fL (80-100); Monocytes Absolute Auto 800 /uL (0-900); Monocytes Percent Auto 11.7 % (3-14); Neutrophils Absolute Auto 4800 /uL (1500-7000); Neutrophils Percent Auto 67.9 % (50-75); Platelet Count 233 X10^3/uL (150-400); Red Blood Cell Count 5.24 X10^6/uL (4.0-5.2)
[2019-11-24 09:33] LABS: Ammonia (NH3) < 9 umol/L (9-30)
[2019-11-24 09:34] LABS: Alanine Aminotransferase 20 IU/L (<35); Albumin 4.3 g/dL (3.5-5.0); Albumin Globulin Ratio 1.1 (1.0-2.8); Alkaline Phosphatase 79 U/L (38-126); Aspartate Aminotransferase 30 IU/L (14-36); BUN Creatinine Ratio 16.7 (6-22); Bilirubin Total 0.9 mg/dL (0.2-1.3); Blood Urea Nitrogen 16 mg/dL (7-17); Calcium 9.8 mg/dL (8.4-10.2); Carbon Dioxide 24 mmol/L (22-32); Chloride 106 mmol/L (98-107); Estimated Glomerular Filt Rate 55.4 mL/min (>60); Glucose 125 mg/dL (80-110); HEMOLYSIS 24 (0-50); Potassium 4.1 mmol/L (3.4-5.1); Sodium 140 mmol/L (137-145); Total Protein 8.3 g/dL (6.3-8.2)
[2019-11-24 10:23] LABS: Vitamin B12 405 pg/mL (239-931)
[2019-11-24 11:29] LABS: Thyroid Stimulating Hormone 3.53 uIU/mL (0.47-4.68)
== END ==
PROVIDERS: Referring Provider Nurse Practitioner Family; Visit Provider Nurse Practitioner Family
DX: R63.4 Abnormal weight loss (principal); R41.0 Disorientation, unspecified; R29.6 Repeated falls; F07.0 Personality change due to known physiological condition
CPT/HCPCS: 36415; 80053; 82140; 82607; 84443; 85025

== ENCOUNTER 2020-05-19 09:19 | Emergency (ER) | payer MEDICARE, SELFPAY ==
[2020-05-19 09:20] VITALS: BP 140/83; PULSE 88; RESP 24; TEMP 36.6; O2SAT 93
[2020-05-19 09:22] VITALS: BP 140/83; PULSE 95; O2SAT 94
[2020-05-19 09:30] VITALS: PULSE 83; RESP 18; O2SAT 92
--- NOTE | 2020-05-19 09:31 | ED.SYNCOPE ---
HPI - Syncope General Chief Complaint: Syncope Stated Complaint: Syncopal Time Seen by Provider: 05/19/20 09:21 Source: EMS Mode of arrival: EMS Limitations: altered mental status History of Present Illness HPI narrative: This is an 85-year-old female who comes to the emergency department with complaint of syncopal episode. This was witnessed patient was being transitioned by her care team at the [facility] when she loss consciousness. She did not fall or hit her head she was held up by the caregivers. Patient was very slow to regain consciousness EMS stated she was still quite out of it when they arrived. Patient has a history of stroke, she does not have much history otherwise besides dementia. She is not currently on any medications. Patient herself is alert but does not clearly answer questions, she does not follow commands for me at this time. Caregiver stated that she has a facial droop that is present from before it is unclear if she has any other deficits from her prior stroke. Related Data Home Medications Medication Instructions Recorded Confirmed Antacid Anti-Gas 30 ml PO Q4H PRN 09/07/18 09/07/18 Enema 133 ml DC PRN PRN 09/07/18 09/07/18 acetaminophen 650 mg PO Q4H PRN MDD 3 gm 09/07/18 09/07/18 acetaminophen 650 mg DC Q4H PRN MDD 3 gm 09/07/18 09/07/18 bisacodyl 10 mg DC PRN PRN 09/07/18 09/07/18 bismuth subsalicylate 30 ml PO PRN PRN 09/07/18 09/07/18 [Pepto-Bismol] dimethicone [Durable Barrier] 1 applic TOPICAL DIRECTED 09/07/18 09/07/18 lorazepam 0.5 tab PO BID PRN 09/07/18 09/07/18 magnesium hydroxide [Milk of 30 ml PO PRN PRN 09/07/18 09/07/18 Magnesia] ondansetron 4 mg PO Q4H PRN 09/07/18 09/07/18 Allergies Allergy/AdvReac Type Severity Reaction Status Date / Time lisinopril Allergy Severe AIRWAY Verified 05/19/20 09:25 BLOCKAGE adhesive Allergy Unknown FROM TAPE Verified 05/19/20 09:25 Review of Systems Review of Systems ROS Unobtainable: Unobtainable due to mental status/LOC Patient History Surgical History History of bladder suspension procedure History of tonsillectomy Family History Father Cancer Exam Narrative Exam Narrative: GEN: well nourished, pale elderly female, alert, patient does not really respond to questions but does acknowledge my presence, patient appears to be in mild distress. HEENT: Atraumatic, pupils are equal round reactive to light, extraocular movements are intact, nares are clear, TMs are clear with no fluid, there is no conjunctival pallor. Throat is clear without any exudates, erythema, tonsillar enlargement or uvular deviation HEART: Regular rate and rhythm without murmur, clicks, rubs. No carotid bruits, pulses are equal in upper and lower extremities LUNGS:Lungs clear to auscultation, no wheezes, rales, crackles, chest moves symmetrically ABD:bowel sounds normal, soft, non-tender, no guarding, rebound, rigidity, no masses noted, no hepatosplenomegaly :No CVA tenderness MSCL: Non-tender, no muscle atrophy noted, patient appears to have normal range of motion of the left side and possibly decreased on the right but difficult to fully evaluate secondary to not following commands NEURO:CN 2-12 intact, sensation normal, reflexes 2/4 bilaterally. Patient not willing commands for neurologic exam. Initial Vital Signs Initial Vital Signs: Vital Signs Temperature 97.8 F 05/19/20 09:20 Pulse Rate 88 05/19/20 09:20 Respiratory Rate 24 05/19/20 09:20 Blood Pressure 140/83 05/19/20 09:20 Pulse Oximetry 93 05/19/20 09:20 Course Orders Ordered: ED Orders 05/19/20 09:24 Complete Blood Count AUTO DIFF Stat Comprehensive Metabolic Panel Stat Ethanol (ETOH) Stat Lipase Stat Partial Thromboplastin Time Stat Prothrombin Time INR Stat Troponin & CK Cardiac Panel Stat 05/19/20 09:30 CT Stroke Stat 05/19/20 09:35 Urine Drug Screen, Rapid Stat EKG-12 Lead Stat Sodium Chloride (Normal Saline 0.9%) 1,000 mls @ 150 mls/hr IV CONT DAVID Reevaluation(s) Reevaluation #1: Patient continues to be improved, daughter is at bedside and states she continues to be at her normal baseline. We did discuss patient's labs, imaging and EKG in the restrictions secondary to her imaging being poor quality. We discussed that we do not have a conclusive cause for her prolonged episode of decreased responsiveness today and there is a wide differential. Patient is DNR without go for aggressive measures and daughter feels comfortable with her returning today without a clear answer. We did discuss possibly getting a urine sample but her daughter felt that trying to obtain a cath urine would be too traumatic and I feel it is appropriate to defer at this point. Patient continues to be at her baseline throughtout stay without any telemetry changes. Time: 10:48 Vital Signs Vital signs: Vital Signs - 8 hr 05/19/20 09:20 05/19/20 09:22 05/19/20 09:30 Temperature 97.8 F Pulse Rate 88 95 H 83 Respiratory Rate 24 18 Blood Pressure 140/83 140/83 Pulse Oximetry 93 94 92 05/19/20 10:03 05/19/20 12:19 Temperature 98.5 F Pulse Rate 71 78 Respiratory Rate 17 Blood Pressure 155/74 H Pulse Oximetry 94 97 MDM - Syncope Lab Data Attestation: I reviewed the patient's lab results. Result diagrams: 05/19/20 09:24 05/19/20 09:24 Labs: Lab Results 05/19/20 05/19/20 05/19/20 Range/Units 09:24 09:24 09:24 WBC 6.8 (4.5-11.0) X10^3/uL RBC 4.97 (4.0-5.2) X10^6/uL Hgb 15.7 (12.0-16.0) g/dL Hct 47.5 H (36-46) % MCV 95.6 (80-100) fL MCH 31.6 (26-34) PG MCHC 33.1 (30-36) % RDW 13.4 (11.6-14.8) % Plt Count 249 (150-400) X10^3/uL Neut % (Auto) 38.0 L (50-75) % Lymph % (Auto) 45.4 H (25-40) % [place] % (Auto) 11.9 (3-14) % Eos % (Auto) 3.5 (2-4) % Baso % (Auto) 1.2 (0-2) % Neut # (Auto) 2600 (6669-1985) /uL Lymph # (Auto) 3100 (8792-9158) /uL [place] # (Auto) 800 (0-900) /uL Eos # (Auto) 200 (0-450) /uL Baso # (Auto) 100 (0-100) /uL PT (10.1-12.7) SECONDS INR (0.9-1.3) APTT (26.4-36.2) SECONDS Sodium 137 (137-145) mmol/L Potassium 4.0 (3.4-5.1) mmol/L Chloride 108 H (98-107) mmol/L Carbon Dioxide 16 L (22-32) mmol/L BUN 11 (7-17) mg/dL Creatinine 0.86 (0.52-1.04) mg/dL Estimated GFR > 60.0 (>60) mL/min BUN/Creatinine Ratio 12.8 (6-22) Glucose 133 H (80-110) mg/dL Calcium 9.6 (8.4-10.2) mg/dL Total Bilirubin 0.7 (0.2-1.3) mg/dL AST 30 (14-36) IU/L ALT 29 (<35) IU/L Alkaline Phosphatase 83 (38-126) U/L Total Creatine Kinase 47 (30-135) U/L CK-MB (CK-2) TNP CK-MB (CK-2) Rel Index TNP Troponin I < 0.012 (0.01-0.034) ng/mL Total Protein 7.8 (6.3-8.2) g/dL Albumin 4.1 (3.5-5.0) g/dL Globulin 3.7 (1.7-4.1) g/dL Albumin/Globulin Ratio 1.1 (1.0-2.8) Lipase 51 (23-300) U/L Ethyl Alcohol < 10 ( - 10) mg/dL 05/19/20 Range/Units 09:24 WBC (4.5-11.0) X10^3/uL RBC (4.0-5.2) X10^6/uL Hgb (12.0-16.0) g/dL Hct (36-46) % MCV (80-100) fL MCH (26-34) PG MCHC (30-36) % RDW (11.6-14.8) % Plt Count (150-400) X10^3/uL Neut % (Auto) (50-75) % Lymph % (Auto) (25-40) % [place] % (Auto) (3-14) % Eos % (Auto) (2-4) % Baso % (Auto) (0-2) % Neut # (Auto) (8347-4101) /uL Lymph # (Auto) (0632-4837) /uL [place] # (Auto) (0-900) /uL Eos # (Auto) (0-450) /uL Baso # (Auto) (0-100) /uL PT 11.0 (10.1-12.7) SECONDS INR 1.0 (0.9-1.3) APTT 32 (26.4-36.2) SECONDS Sodium (137-145) mmol/L Potassium (3.4-5.1) mmol/L Chloride (98-107) mmol/L Carbon Dioxide (22-32) mmol/L BUN (7-17) mg/dL Creatinine (0.52-1.04) mg/dL Estimated GFR (>60) mL/min BUN/Creatinine Ratio (6-22) Glucose (80-110) mg/dL Calcium (8.4-10.2) mg/dL Total Bilirubin (0.2-1.3) mg/dL AST (14-36) IU/L ALT (<35) IU/L Alkaline Phosphatase (38-126) U/L Total Creatine Kinase (30-135) U/L CK-MB (CK-2) CK-MB (CK-2) Rel Index Troponin I (0.01-0.034) ng/mL Total Protein (6.3-8.2) g/dL Albumin (3.5-5.0) g/dL Globulin (1.7-4.1) g/dL Albumin/Globulin Ratio (1.0-2.8) Lipase (23-300) U/L Ethyl Alcohol ( - 10) mg/dL Imaging Data CT scan - head: Radiologist's Impression: [address] [address] [address] Scan Report Signed Patient: AdeliaMarilou LMR#: [id number] : 5Acct:[id number] Age/Sex: 85 / FDate of Service: 05/19/20 Loc: ED Accession Number: [id number] Procedure: CT Stroke Ordering Provider: Jami Rangel D.O. PROCEDURE: CT STROKE INDICATIONS: syncope, very slow to respond, hx of CVA TECHNIQUE: Noncontrast 4.5 mm thick angled axial sections acquired from the foramen magnum to the vertex, with coronal reformats. For radiation dose reduction, the following was used: automated exposure control, adjustment of mA and/or kV according to patient size. COMPARISON: [facility], MR, BRAIN WITHOUT CONTRAST, 09/16/2016, 11:53. [facility], CT, HEAD WITHOUT CONTRAST, 10/07/2016, 11:44. [facility], CT, CT HEAD/BRAIN WO CON, 01/31/2019, 15:39. [facility], CT, CT HEAD/BRAIN WO CON, 09/07/2018, 10:27. [facility], CT, CT HEAD/BRAIN WO CON, 04/03/2018, 2:28. FINDINGS: Image quality: This examination is limited by involuntary motion artifact. Images are repeated, yet without significant improvement. CSF spaces: Basal cisterns are patent. No extra-axial fluid collections. The ventricles are symmetric in size and shape. Brain: No intracranial bleeds or masses. There is cerebral volume loss for age, with resultant ventricular and sulcal prominence. There are periventricular and deep white matter chronic small vessel ischemic changes. There is intracranial internal carotid artery atherosclerosis. Skull and face: Calvarium and visualized facial bones appear intact, without suspicious lesions. Sinuses: Visualized sinuses and mastoids are clear. IMPRESSION: Limited study demonstrating no ruthie, acute intracranial hemorrhage. No acute intracranial process is seen. Brain parenchymal volume loss and chronic small vessel ischemic changes are seen. Note: Findings and limitations discussed by telephone with Dr. Rangel at 9:16 a.m. [place] time on May 19, 2020. This study fulfills neurological imaging criteria for inclusion or exclusion of acute stroke therapies based on available published neurological guidelines. Dictated by: Ever Vale M.D. on 05/19/2020 at 9:14 Approved by: Ever Vale M.D. on 05/19/2020 at 9:17 ECG Data Attestation: I personally reviewed and interpreted this ECG as follows: Prior ECG tracings: available for review Interpretation: Sinus rhythm rate of 79 P are 168 QRS 66 and QTC of 483. No ST elevation depression appreciated patient has a Q-wave in V1 as well as 2 3 and AVF. Appears similar to prior from 09/17/2016. MDM Narrative Medical decision making narrative: Patient comes in with possible syncopal episode that was prolonged. It was witnessed and patient did not have a fall or trauma. There was concern about possible stroke although patient as at this time baseline, her daughter states that she is at her normal baseline here in the emergency department she was present at the care facility and states that her mother was unresponsive there and then slowly improved. She states she does have a history of recurrent episodes of syncope but never had a prolonged episode of decreased level of responsiveness. Labs do not show any major abnormalities, EKG and telemetry so far has not showed any changes, head CT does not show clear intracranial bleed it is somewhat poor quality secondary to patient unable to follow commands and continuously moving. Discussed with daughter and plan Discharge Plan Departure Patient Disposition: Home Clinical Impression: Syncope Instructions: DI for Syncope in Adults (Fainting) Activity Restrictions/Additional Instructions: Follow up with primary care in the next week as appropriate. Patient may continue any OTC medications she normally takes. Imaging, EKG and labs were performed today with no conclusive findings at this time. Please return for any new or concerning symptoms recurrent prolonged episodes of unconsciousness, multiple episodes of syncope or passing out, severe headaches, persistent vomiting, difficulty with breathing, or other new or concerning symptoms. Prescriptions: No Action Antacid Anti-Gas 30 ml PO Q4H PRN (Reason: nausea or heartburn) RF: 0 acetaminophen 650 mg Suppository 650 mg DC Q4H MDD 3 gm PRN (Reason: Fever Or Pain) RF: 0 magnesium hydroxide [Milk of Magnesia] 400 mg/5 mL Suspension 30 ml PO PRN PRN (Reason: Constipation) RF: 0 bisacodyl 10 mg Suppository 10 mg DC PRN PRN (Reason: Constipation) RF: 0 bismuth subsalicylate [Pepto-Bismol] 262 mg/15 mL Suspension 30 ml PO PRN PRN (Reason: Diarrhea) RF: 0 ondansetron 4 mg Tablet,Disintegrating 4 mg PO Q4H PRN (Reason: Nausea And Vomiting) RF: 0 dimethicone [Cavilon Durable Barrier] 1.3 % Cream 1 applic Topical DIRECTED RF: 0 Enema 133 ml DC PRN PRN (Reason: Constipation) RF: 0 acetaminophen 325 MG tablet 650 mg PO Q4H MDD 3 gm PRN (Reason: Fever Or Pain) RF: 0 lorazepam 0.5 MG tablet 0.5 tab PO BID PRN (Reason: Anxiety) RF: 0 Referrals: Anya Jesus MD [Primary Care Provider] -
[2020-05-19 09:40] LABS: Add Manual Diff / Slide Review NO; Basophils Absolute Auto 100 /uL (0-100); Basophils Percent Auto 1.2 % (0-2); Eosinophils Absolute Auto 200 /uL (0-450); Eosinophils Percent Auto 3.5 % (2-4); Hematocrit 47.5 % (36-46); Hemoglobin 15.7 g/dL (12.0-16.0); Lipase 51 U/L (23-300); Lymphocytes Absolute Auto 3100 /uL (1100-4500); Lymphocytes Percent Auto 45.4 % (25-40); Mean Corpuscular HGB Conc 33.1 % (30-36); Mean Corpuscular Hemoglobin 31.6 PG (26-34); Mean Corpuscular Volume 95.6 fL (80-100); Monocytes Absolute Auto 800 /uL (0-900); Monocytes Percent Auto 11.9 % (3-14); Neutrophils Absolute Auto 2600 /uL (1500-7000); Platelet Count 249 X10^3/uL (150-400); Red Blood Cell Count 4.97 X10^6/uL (4.0-5.2); Red Cell Distribution Width 13.4 % (11.6-14.8); White Blood Cell Count 6.8 X10^3/uL (4.5-11.0)
[2020-05-19 09:44] LABS: PTT Partial Thromboplastin Tim 32 SECONDS (26.4-36.2)
[2020-05-19 10:03] VITALS: PULSE 71; O2SAT 94
[2020-05-19 10:03] LABS: Alanine Aminotransferase 29 IU/L (<35); Albumin 4.1 g/dL (3.5-5.0); Albumin Globulin Ratio 1.1 (1.0-2.8); Alkaline Phosphatase 83 U/L (38-126); Aspartate Aminotransferase 30 IU/L (14-36); BUN Creatinine Ratio 12.8 (6-22); Bilirubin Total 0.7 mg/dL (0.2-1.3); Blood Urea Nitrogen 11 mg/dL (7-17); Calcium 9.6 mg/dL (8.4-10.2); Carbon Dioxide 16 mmol/L (22-32); Chloride 108 mmol/L (98-107); Creatine Kinase 47 U/L (30-135); Estimated Glomerular Filt Rate > 60.0 mL/min (>60); Ethanol (ETOH) < 10 mg/dL; Globulin 3.7 g/dL (1.7-4.1); Glucose 133 mg/dL (80-110); HEMOLYSIS 43 (0-50); Sodium 137 mmol/L (137-145); Total Protein 7.8 g/dL (6.3-8.2)
[2020-05-19 10:15] LABS: Troponin I < 0.012 ng/mL (0.01-0.034)
[2020-05-19 12:19] VITALS: BP 155/74; PULSE 78; RESP 17; TEMP 36.9; O2SAT 97
== END 2020-05-19 12:48 | disposition home or self-care (01) ==
PROVIDERS: Emergency Provider Emergency Medicine; PCP Internal Medicine
DX: R55 Syncope and collapse (principal); F03.90 Unspecified dementia, unspecified severity, without behavioral disturbance, psychotic disturbance, mood disturbance, and anxiety; R07.9 Chest pain, unspecified
CPT/HCPCS: 70450; 80053; 80320; 82550; 83690; 84484; 85025; 85610; 85730; 93005; 99284

== ENCOUNTER 2020-10-27 09:01 | Emergency (ER) | payer MEDICARE, SELFPAY ==
[2020-10-27] VITALS (15 sets, daily range): BP systolic 131–198; BP diastolic 70–115; PULSE 79–102; RESP 14–25; TEMP 35.9; O2SAT 93–100
--- NOTE | 2020-10-27 09:04 | DI.CT.S_ITS ---
PROCEDURE: CT STROKE INDICATIONS: unresponsive, hypertensive. TPA candidate. TECHNIQUE: Noncontrast 4.5 mm thick angled axial sections acquired from the foramen magnum to the vertex, with coronal reformats. For radiation dose reduction, the following was used: automated exposure control, adjustment of mA and/or kV according to patient size. COMPARISON: [facility], CT, CT HEAD/BRAIN WO CON, 04/03/2018, 2:28. [facility], CT, CT HEAD/BRAIN WO CON, 01/31/2019, 15:39. [facility], CT, CT STROKE, 05/19/2020, 9:47. FINDINGS: Image quality: This examination is limited by involuntary motion artifact. Images are repeated, with some improvement. CSF spaces: Basal cisterns are patent. No extra-axial fluid collections. The ventricles are symmetric in size and shape. Brain: No intracranial bleeds or masses. There is cerebral volume loss for age, with resultant ventricular and sulcal prominence. There are periventricular and deep white matter chronic small vessel ischemic changes. Focal low density can be seen involving the left frontal lobe superiorly. There is intracranial internal carotid artery atherosclerosis. Skull and face: Calvarium and visualized facial bones appear intact, without suspicious lesions. Incidental note is made of hyperostosis frontalis. This is not considered to be pathologic in a woman of this age. Sinuses: Visualized sinuses and mastoids are clear. IMPRESSION: On these motion limited images, no definite findings of acute hemorrhage can be seen. 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 Note: Case discussed by telephone with Dr. Rangel at 8:17 a.m. [place] time on October 27, 2020. This study fulfills neurological imaging criteria for inclusion or exclusion of acute stroke therapies based on available published neurological guidelines. Dictated by: Ever Vale M.D. on 10/27/2020 at 8:14 Approved by: Ever Vale M.D. on 10/27/2020 at 8:18
--- NOTE | 2020-10-27 09:17 | ED_ITS ---
HPI - Neuro Symptoms/Deficit General Chief Complaint: Neuro Symptoms/Deficit Stated Complaint: Code Stroke Time Seen by Provider: 10/27/20 09:04 Source: patient and EMS Mode of arrival: EMS Limitations: altered mental status History of Present Illness HPI Narrative: This is an 85-year-old female who sent for altered mental status. Patient was unresponsive at her care facility. She has had 1 prior episode similar to this in May with no acute cause found. Patient today was seen about 20-30 minutes prior and was her normal talkative self. Patient does have dementia but per EMS and Dr. Jesus she is normally ambulatory and speaks. Patient had a GCS of 3 at the facility for EMS which improved 6. She was otherwise not distress. She was hypertensive in the 200 range for the facility but for EMS was 150s. Glucose was normal. Patient's is unable to answer any other questions at this time but she does have eyes open moves independently. Related Data Home Medications Medication Instructions Recorded Confirmed Antacid Anti-Gas 30 ml PO Q4H PRN 09/07/18 09/07/18 Enema 133 ml ND PRN PRN 09/07/18 09/07/18 acetaminophen 650 mg PO Q4H PRN MDD 3 gm 09/07/18 09/07/18 acetaminophen 650 mg ND Q4H PRN MDD 3 gm 09/07/18 09/07/18 bisacodyl 10 mg ND PRN PRN 09/07/18 09/07/18 bismuth subsalicylate 30 ml PO PRN PRN 09/07/18 09/07/18 [Pepto-Bismol] dimethicone [Durable Barrier] 1 applic TOPICAL DIRECTED 09/07/18 09/07/18 lorazepam 0.5 tab PO BID PRN 09/07/18 09/07/18 magnesium hydroxide [Milk of 30 ml PO PRN PRN 09/07/18 09/07/18 Magnesia] ondansetron 4 mg PO Q4H PRN 09/07/18 09/07/18 Allergies Allergy/AdvReac Type Severity Reaction Status Date / Time lisinopril Allergy Severe AIRWAY Verified 05/19/20 09:25 BLOCKAGE adhesive Allergy Unknown FROM TAPE Verified 05/19/20 09:25 Review of Systems Review of Systems ROS Unobtainable: Unobtainable due to mental status/LOC Patient History Surgical History History of bladder suspension procedure History of tonsillectomy Family History Father Cancer Social History Smoking Status: Unknown if ever smoked Exam Initial Vital Signs Initial Vital Signs: Vital Signs Temperature 96.6 F L 10/27/20 09:11 Pulse Rate 93 H 10/27/20 09:11 Respiratory Rate 18 10/27/20 09:11 Blood Pressure 131/74 10/27/20 09:11 Pulse Oximetry 94 10/27/20 09:11 GEN: well nourished, well appearing elderly female, alert, patient does not answer questions or follow commands, patient appears to be in mild distress. HEENT: Atraumatic, pupils are equal round reactive to light, extraocular movements are intact, nares are clear, TMs are clear with no fluid, Throat is clear without any exudates, erythema, tonsillar enlargement or uvular deviation HEART: Regular rate and rhythm without murmur, clicks, rubs. LUNGS:Lungs clear to auscultation, no wheezes, rales, crackles, chest moves symmetrically ABD:bowel sounds normal, soft, non-tender, no guarding, rebound, rigidity, no masses noted, no hepatosplenomegaly :No CVA tenderness MSCL: Non-tender, no muscle atrophy NEURO:CN 2-12 intact, sensation normal, reflex 2/4 upper and lower extremities. Patient moves all extremities but unable to follow commands SKIN: No rash Scores GCS Josette coma scale eye opening: Spontaneous [place] coma scale verbal response: None Josette coma scale motor response: Localising Josette coma scale total score: 10 Course Orders Ordered: ED Orders 10/27/20 10:13 Urinalysis and Microscopic Stat Urine Drug Screen, Rapid Stat Discontinued Medications Sodium Chloride (Normal Saline 0.9%) 1,000 mls @ 150 mls/hr IV CONT DAVID Last Infusion: 10/27/20 12:36 Dose: 0 mls/hr Documented by: Infusion: 10/27/20 11:28 Dose: 0 mls/hr Documented by: Admin: 10/27/20 10:32 Dose: 150 mls/hr Documented by: LISBETH Reevaluation(s) Reevaluation #1: Patient is alert she did respond to her daughter. Her daughter states she seems to be back at her normal baseline. I had seen the patient back in May patient had what sounded like a syncopal episode at that time with very prolonged return to consciousness. Today was unwitnessed. But does seem very similar event otherwise. Daughter and I discussed we did not find any clear acute cause, there is no obvious stroke-like symptoms unable to perform an NIH is patient does not normally follow commands any way and was unable to initially. Her GCS continues to improve and she is now back at her baseline. Time: 10:25 Vital Signs Vital signs: Vital Signs - 8 hr 10/27/20 11:15 10/27/20 11:30 10/27/20 11:45 Pulse Rate 84 87 81 Respiratory Rate 15 20 15 Blood Pressure 172/80 H 165/87 H 174/87 H Pulse Oximetry 95 96 95 10/27/20 12:00 10/27/20 12:29 Pulse Rate 92 H 85 Respiratory Rate 15 16 Blood Pressure 198/111 H 191/115 H Pulse Oximetry 96 100 MDM - Neuro Symptoms/Deficit Lab Data Attestation: I reviewed the patient's lab results. Result diagrams: 10/27/20 09:15 10/27/20 09:15 Labs: Lab Results 10/27/20 10/27/20 10/27/20 Range/Units 09:11 09:15 09:15 WBC 7.9 (4.5-11.0) X10^3/uL RBC 4.81 (4.0-5.2) X10^6/uL Hgb 15.1 (12.0-16.0) g/dL Hct 45.5 (36-46) % MCV 94.6 (80-100) fL MCH 31.3 (26-34) PG MCHC 33.1 (30-36) % RDW 13.2 (11.6-14.8) % Plt Count 221 (150-400) X10^3/uL Neut % (Auto) 52.0 (50-75) % Lymph % (Auto) 32.5 (25-40) % [place] % (Auto) 11.1 (3-14) % Eos % (Auto) 3.4 (2-4) % Baso % (Auto) 1.0 (0-2) % Neut # (Auto) 4100 (3627-2647) /uL Lymph # (Auto) 2600 (4802-1947) /uL [place] # (Auto) 900 (0-900) /uL Eos # (Auto) 300 (0-450) /uL Baso # (Auto) 100 (0-100) /uL PT 11.8 (10.1-12.7) SECONDS INR 1.0 (0.9-1.3) APTT 30 (26.4-36.2) SECONDS Sodium (137-145) mmol/L Potassium (3.4-5.1) mmol/L Chloride (98-107) mmol/L Carbon Dioxide (22-32) mmol/L BUN (7-17) mg/dL Creatinine (0.52-1.04) mg/dL Estimated GFR (>60) mL/min BUN/Creatinine Ratio (6-22) Glucose (80-110) mg/dL Calcium (8.4-10.2) mg/dL Total Bilirubin (0.2-1.3) mg/dL AST (14-36) IU/L ALT (<35) IU/L Alkaline Phosphatase (38-126) U/L Total Creatine Kinase (30-135) U/L CK-MB (CK-2) CK-MB (CK-2) Rel Index Troponin I (0.01-0.034) ng/mL Total Protein (6.3-8.2) g/dL Albumin (3.5-5.0) g/dL Globulin (1.7-4.1) g/dL Albumin/Globulin Ratio (1.0-2.8) Prolactin (3.0-18.6) ng/mL Urine Color Urine Appearance Urine pH (4.5-8.0) Ur Specific [place] (1.000-1.035) Urine Protein (Negative) Urine Glucose (UA) (Negative) g/dL Urine Ketones (NEGATIVE) Urine Occult Blood (Negative) Urine Nitrate (Negative) Urine Bilirubin (NEGATIVE) Urine Urobilinogen (0.2) E.U./dL Ur Leukocyte Esterase (NEGATIVE) Urine RBC (0-5/HPF) Urine WBC (0-5/HPF) Ur Squamous Epith Cells (0-5/HPF) Urine Bacteria (None) Hyaline Casts (None) Urine Mucus (Negative) Ur Culture Indicated? U Opiates 300ng/mL cut (Negative) Ur Oxycodone Screen (Negative) Urine Methadone Screen (Negative) Ur Barbiturates Screen (Negative) U Tricyclic Antidepress (Negative) Ur Phencyclidine Scrn (Negative) Ur Amphetamines Screen (Negative) U Methamphetamines Scrn (Negative) Ur MDMA Scrn (Ecstasy) (Negative) U Benzodiazepines Scrn (Negative) Urine Cocaine Screen (Negative) U Marijuana (THC) Screen (Negative) SARS-CoV-2 (PCR) Negative (Negative) 10/27/20 10/27/20 10/27/20 Range/Units 09:15 10:13 10:13 WBC (4.5-11.0) X10^3/uL RBC (4.0-5.2) X10^6/uL Hgb (12.0-16.0) g/dL Hct (36-46) % MCV (80-100) fL MCH (26-34) PG MCHC (30-36) % RDW (11.6-14.8) % Plt Count (150-400) X10^3/uL Neut % (Auto) (50-75) % Lymph % (Auto) (25-40) % [place] % (Auto) (3-14) % Eos % (Auto) (2-4) % Baso % (Auto) (0-2) % Neut # (Auto) (6191-2227) /uL Lymph # (Auto) (7044-0274) /uL [place] # (Auto) (0-900) /uL Eos # (Auto) (0-450) /uL Baso # (Auto) (0-100) /uL PT (10.1-12.7) SECONDS INR (0.9-1.3) APTT (26.4-36.2) SECONDS Sodium 139 (137-145) mmol/L Potassium 3.6 (3.4-5.1) mmol/L Chloride 108 H (98-107) mmol/L Carbon Dioxide 21 L (22-32) mmol/L BUN 13 (7-17) mg/dL Creatinine 0.88 (0.52-1.04) mg/dL Estimated GFR > 60.0 (>60) mL/min BUN/Creatinine Ratio 14.8 (6-22) Glucose 116 H (80-110) mg/dL Calcium 9.2 (8.4-10.2) mg/dL Total Bilirubin 0.4 (0.2-1.3) mg/dL AST 27 (14-36) IU/L ALT 23 (<35) IU/L Alkaline Phosphatase 91 (38-126) U/L Total Creatine Kinase 41 (30-135) U/L CK-MB (CK-2) TNP CK-MB (CK-2) Rel Index TNP Troponin I < 0.012 (0.01-0.034) ng/mL Total Protein 7.3 (6.3-8.2) g/dL Albumin 3.9 (3.5-5.0) g/dL Globulin 3.4 (1.7-4.1) g/dL Albumin/Globulin Ratio 1.1 (1.0-2.8) Prolactin 141.9 H (3.0-18.6) ng/mL Urine Color Yellow Urine Appearance Clear Urine pH 6.5 (4.5-8.0) Ur Specific [place] 1.025 (1.000-1.035) Urine Protein Negative (Negative) Urine Glucose (UA) Negative (Negative) g/dL Urine Ketones Negative (NEGATIVE) Urine Occult Blood Trace-lysed (Negative) Urine Nitrate Negative (Negative) Urine Bilirubin Negative (NEGATIVE) Urine Urobilinogen 0.2 (0.2) E.U./dL Ur Leukocyte Esterase Negative (NEGATIVE) Urine RBC 0-1/hpf (0-5/HPF) Urine WBC 0-1/hpf (0-5/HPF) Ur Squamous Epith Cells 0-1 /hpf (0-5/HPF) Urine Bacteria None seen (None) Hyaline Casts 0-1/lpf (None) Urine Mucus 1+ H (Negative) Ur Culture Indicated? Culture not indicate U Opiates 300ng/mL cut Negative (Negative) Ur Oxycodone Screen Negative (Negative) Urine Methadone Screen Negative (Negative) Ur Barbiturates Screen Negative (Negative) U Tricyclic Antidepress Negative (Negative) Ur Phencyclidine Scrn Negative (Negative) Ur Amphetamines Screen Negative (Negative) U Methamphetamines Scrn Negative (Negative) Ur MDMA Scrn (Ecstasy) Negative (Negative) U Benzodiazepines Scrn Negative (Negative) Urine Cocaine Screen Negative (Negative) U Marijuana (THC) Screen Negative (Negative) SARS-CoV-2 (PCR) (Negative) Point of Care Testing Glucose POC [address] scan - head: Radiologist's Impression: [address] [id number] Scan ReportSigned Patient: Marilou Delvalle LMR#: [id number]: 5Acct:[id number]/Sex: 85 / FDate of Service: 10/27/20Loc: EDAccession Number: [id number] Procedure: CT Stroke Ordering Provider: Jami Rangel D.O. PROCEDURE: CT STROKE INDICATIONS: unresponsive, hypertensive. TPA candidate. TECHNIQUE: Noncontrast 4.5 mm thick angled axial sections acquired from the foramen magnum to the vertex, with coronal reformats. For radiation dose reduction, the following was used: automated exposure control, adjustment of mA and/or kV according to patient size. COMPARISON: [facility], CT, CT HEAD/BRAIN WO CON, 04/03/2018, 2:28. [facility], CT, CT HEAD/BRAIN WO CON, 01/31/2019, 15:39. [facility], CT, CT STROKE, 05/19/2020, 9:47. FINDINGS: Image quality: This examination is limited by involuntary motion artifact. Images are repeated, with some improvement. CSF spaces: Basal cisterns are patent. No extra-axial fluid collections. The ventricles are symmetric in size and shape. Brain: No intracranial bleeds or masses. There is cerebral volume loss for age, with resultant ventricular and sulcal prominence. There are periventricular and deep white matter chronic small vessel ischemic changes. Focal low density can be seen involving the left frontal lobe superiorly. There is intracranial internal carotid artery atherosclerosis. Skull and face: Calvarium and visualized facial bones appear intact, without suspicious lesions. Incidental note is made of hyperostosis frontalis. This is not considered to be pathologic in a woman of this age. Sinuses: Visualized sinuses and mastoids are clear. IMPRESSION: On these motion limited images, no definite findings of acute hemorrhage can be seen. 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 Note: Case discussed by telephone with Dr. Rangel at 8:17 a.m. [place] time on October 27, 2020. This study fulfills neurological imaging criteria for inclusion or exclusion of acute stroke therapies based on available published neurological guidelines. Dictated by: Ever Vale M.D. on 10/27/2020 at 8:14 Approved by: Ever Vale M.D. on 10/27/2020 at 8:18 ECG Data Attestation: I personally reviewed and interpreted this ECG as follows: Prior ECG tracings: available for review Interpretation: Sinus rhythm rate of 86 P are 180 QRS of 64 and QTC of 449. No acute ST elevation depression is appreciated patient has Q-waves in 2 3 and AVF. Patient has prior EKG from 05/19/2020. MDM Narrative Medical decision making narrative: This is an 85-year-old female comes in with acute alteration in her mental status. Patient is sedated GCS of 3 although she was breathing independently, at her facility there was report of severe hypertension which was much improved on arrival here. Her mental status at also improved and she was alert although nonverbal. She is sometimes nonverbal according to her daughter and at this time she is back to her normal baseline. Head CT, EKG and labs do not show an acute clear cause. She has had at least 1 prior episode in May. No clear lateralizing symptoms that increase the likelihood of stroke although this is on the differential. There was discussion with Dr. Jesus about possibly postictal from seizure. Patient does not have any known seizure disorder but this is possible. Daughter and I both discussed and patient would likely not tolerate EEG. Also discussed possibility of a cardiac arrhythmia although patient has slow improvement of symptoms with no changes on EKG or telemetry make this less likely as well. We did discuss that patient and family do not wish aggressive interventions at this time and plan to return home to her facility. Discharge Plan Departure Patient Disposition: Home Clinical Impression: Acute alteration in mental status Instructions: DI for Altered Mental Status Activity Restrictions/Additional Instructions: Follow up with your physician in the next several days. We do not have a clear cause for your symptoms today, there is a wide differential or list of possibilities. You and Dr. Jesus may wish to discuss what is you both feel is appropriate further workup. Patient may continue home medications as prescribed. Please return to the ER for new acute alterations in mental status, difficulty with breathing, persistent vomiting, patient seems to be in pain, black or bloody stools, difficulty with movement, new changes in mental status or other new or concerning symptoms. Prescriptions: No Action Antacid Anti-Gas 30 ml PO Q4H PRN (Reason: nausea or heartburn) RF: 0 acetaminophen 650 mg Suppository 650 mg ND Q4H MDD 3 gm PRN (Reason: Fever Or Pain) RF: 0 magnesium hydroxide [Milk of Magnesia] 400 mg/5 mL Suspension 30 ml PO PRN PRN (Reason: Constipation) RF: 0 bisacodyl 10 mg Suppository 10 mg ND PRN PRN (Reason: Constipation) RF: 0 bismuth subsalicylate [Pepto-Bismol] 262 mg/15 mL Suspension 30 ml PO PRN PRN (Reason: Diarrhea) RF: 0 ondansetron 4 mg Tablet,Disintegrating 4 mg PO Q4H PRN (Reason: Nausea And Vomiting) RF: 0 dimethicone [[place]av[place] Durable Barrier] 1.3 % Cream 1 applic Topical DIRECTED RF: 0 Enema 133 ml ND PRN PRN (Reason: Constipation) RF: 0 acetaminophen 325 MG tablet 650 mg PO Q4H MDD 3 gm PRN (Reason: Fever Or Pain) RF: 0 lorazepam 0.5 MG tablet 0.5 tab PO BID PRN (Reason: Anxiety) RF: 0 Referrals: Anya Jesus MD [Primary Care Provider] -
[2020-10-27 09:26] LABS: Add Manual Diff / Slide Review NO; Basophils Absolute Auto 100 /uL (0-100); Eosinophils Absolute Auto 300 /uL (0-450); Eosinophils Percent Auto 3.4 % (2-4); Hematocrit 45.5 % (36-46); Hemoglobin 15.1 g/dL (12.0-16.0); Lymphocytes Absolute Auto 2600 /uL (1100-4500); Lymphocytes Percent Auto 32.5 % (25-40); Mean Corpuscular HGB Conc 33.1 % (30-36); Mean Corpuscular Hemoglobin 31.3 PG (26-34); Mean Corpuscular Volume 94.6 fL (80-100); Monocytes Absolute Auto 900 /uL (0-900); Monocytes Percent Auto 11.1 % (3-14); Neutrophils Absolute Auto 4100 /uL (1500-7000); Platelet Count 221 X10^3/uL (150-400); Red Blood Cell Count 4.81 X10^6/uL (4.0-5.2); Red Cell Distribution Width 13.2 % (11.6-14.8); White Blood Cell Count 7.9 X10^3/uL (4.5-11.0)
[2020-10-27 09:34] LABS: Prothrombin Time 11.8 SECONDS (10.1-12.7)
[2020-10-27 09:37] LABS: PTT Partial Thromboplastin Tim 30 SECONDS (26.4-36.2)
[2020-10-27 09:38] LABS: Alanine Aminotransferase 23 IU/L (<35); Albumin 3.9 g/dL (3.5-5.0); Albumin Globulin Ratio 1.1 (1.0-2.8); Alkaline Phosphatase 91 U/L (38-126); Aspartate Aminotransferase 27 IU/L (14-36); BUN Creatinine Ratio 14.8 (6-22); Bilirubin Total 0.4 mg/dL (0.2-1.3); Blood Urea Nitrogen 13 mg/dL (7-17); Calcium 9.2 mg/dL (8.4-10.2); Carbon Dioxide 21 mmol/L (22-32); Chloride 108 mmol/L (98-107); Creatine Kinase 41 U/L (30-135); Estimated Glomerular Filt Rate > 60.0 mL/min (>60); Globulin 3.4 g/dL (1.7-4.1); Glucose 116 mg/dL (80-110); HEMOLYSIS < 15 (0-50); Potassium 3.6 mmol/L (3.4-5.1); Sodium 139 mmol/L (137-145); Total Protein 7.3 g/dL (6.3-8.2)
[2020-10-27 09:50] LABS: Troponin I < 0.012 ng/mL (0.01-0.034)
[2020-10-27 10:26] LABS: Ur Creatinine Normal (Normal); Ur Specific Gravity Normal (Normal); Urine pH Normal (Normal)
[2020-10-27 10:27] LABS: UR Morphine/Opiate cutoff 300 Negative (Negative); Urine Amphetamines Negative (Negative); Urine Barbiturates Negative (Negative); Urine Benzodiazepines Negative (Negative); Urine Cocaine Negative (Negative); Urine MDMA Negative (Negative); Urine Methadone Negative (Negative); Urine Methamphetamines Negative (Negative); Urine Oxycodone Negative (Negative); Urine Phencyclidine Negative (Negative); Urine Tetrahydrocannabinol Negative (Negative); Urine Tricyclic Antidepressant Negative (Negative)
[2020-10-27 10:29] LABS: COVID19 - ADMIT (NP swab/PCR) Negative (Negative)
[2020-10-27] MEDS: SODIUM CHLORIDE 0.9% 1,000 ML 150 ML IV (10:32)
[2020-10-27 10:40] LABS: Bacteria Urine None Seen
[2020-10-27 10:44] LABS: Appearance Urine UA CLEAR; Bilirubin Urine UA NEGATIVE (NEGATIVE); Color Urine UA YELLOW; Glucose Urine UA NEGATIVE (Negative); Ketones Urine UA NEGATIVE (NEGATIVE); Leukocyte Esterase Urine UA NEGATIVE (NEGATIVE); Nitrite Urine UA NEGATIVE (Negative); Occult Blood Urine UA TRACE-LYSED (Negative); Protein Urine UA NEGATIVE (Negative); Specific Gravity Urine UA 1.025 (1.000-1.035); Urobilinogen Urine UA 0.2 E.U./dL (0.2)
[2020-10-27 10:45] LABS: pH Urine UA 6.5 (4.5-8.0)
--- NOTE | 2020-10-27 10:55 | PC.NURSE ---
unable to complete NIH scale due to patient is unable to follow commands at her baseline anyway.
[2020-10-27 10:58] LABS: Hyaline Casts Urine 0-1/LPF; Mucus Urine 1+ (Negative); RBC Urine 0-1/HPF (0-5/HPF); Squamous Epithelial Cell Urine 0-1 /HPF (0-5/HPF); WBC Urine 0-1/HPF (0-5/HPF)
[2020-10-27 12:41] LABS: Prolactin 141.9 ng/mL (3.0-18.6)
== END 2020-10-27 12:37 | disposition home or self-care (01) ==
PROVIDERS: Emergency Provider Emergency Medicine; PCP Internal Medicine
DX: R41.82 Altered mental status, unspecified (principal); F03.90 Unspecified dementia, unspecified severity, without behavioral disturbance, psychotic disturbance, mood disturbance, and anxiety; Z20.822 Contact with and (suspected) exposure to COVID-19
CPT/HCPCS: 36415; 51701; 70450; 80053; 80305; 81001; 82550; 82962; 84146; 84484; 85025; 85610; 85730; 87635; 93005; 96360; 99284; 99285

== ENCOUNTER 2021-03-02 10:43 | Emergency (ER) | payer MEDICARE, SELFPAY ==
[2021-03-02] VITALS (7 sets, daily range): BP systolic 148–166; BP diastolic 68–78; PULSE 24–108; RESP 17–33; TEMP 36.4; O2SAT 91–100
--- NOTE | 2021-03-02 10:45 | ED.SEIZURE ---
HPI - Seizure General Chief Complaint: Seizure Stated Complaint: 1 min seizure, no history Time Seen by Provider: 03/02/21 10:45 History of Present Illness HPI Narrative: 85-year-old female with history of dementia, stroke and anemia presents by EMS for evaluation of a seizure. She comes from a memory care center and had what staff describes as about a 1 minute tonic clonic type seizure that resolved prior to EMS arrival. She was still slightly postictal when EMS arrived. She has had no trauma and has not been ill and at her normal baseline otherwise. She has had no fever chills. She has no allergies and takes no routine medications. She contributes nothing to the history given her advanced dementia. She is a DNR with limited interventions Related Data Home Medications Medication Instructions Recorded Confirmed Antacid Anti-Gas 30 ml PO Q4H PRN 09/07/18 09/07/18 Enema 133 ml VT PRN PRN 09/07/18 09/07/18 acetaminophen 325 mg tablet 650 mg PO Q4H PRN MDD 3 gm 09/07/18 09/07/18 acetaminophen 650 mg rectal 650 mg VT Q4H PRN MDD 3 gm 09/07/18 09/07/18 suppository bisacodyl 10 mg rectal suppository 10 mg VT PRN PRN 09/07/18 09/07/18 bismuth subsalicylate 262 mg/15 mL 30 ml PO PRN PRN 09/07/18 09/07/18 oral suspension (Pepto-Bismol) dimethicone 1.3 % topical cream 1 applic TOPICAL DIRECTED 09/07/18 09/07/18 (Cavilon Durable Barrier) lorazepam 0.5 mg tablet 0.5 tab PO BID PRN 09/07/18 09/07/18 magnesium hydroxide 400 mg/5 mL 30 ml PO PRN PRN 09/07/18 09/07/18 oral suspension (Milk of Magnesia) ondansetron 4 mg disintegrating 4 mg PO Q4H PRN 09/07/18 09/07/18 tablet Previous Rx's Medication Instructions Recorded cephalexin 500 mg capsule 500 mg PO Q6H 7 Days #28 cap 03/02/21 Allergies Allergy/AdvReac Type Severity Reaction Status Date / Time lisinopril Allergy Severe AIRWAY Verified 03/02/21 12:52 BLOCKAGE adhesive Allergy Unknown FROM TAPE Verified 03/02/21 12:52 Review of Systems Review of Systems ROS Unobtainable: Unobtainable due to mental status/LOC Patient History Surgical History History of bladder suspension procedure History of tonsillectomy Family History Father Cancer Social History Smoking Status: Unknown if ever smoked Smoking Status: Unknown if ever smoked Exam Narrative Exam Narrative: GENERAL: [85] year old patient appears stated age. Well-developed patient, pleasantly confused HEAD: Atraumatic. Normocephalic. EYES: Pupils equal round and reactive. Extraocular motions intact. No scleral icterus. No injection or drainage. ENT: Nose without bleeding, purulent drainage. Throat without erythema, tonsillar hypertrophy or exudate. Airway patent. NECK: Trachea midline. Non tender CARDIOVASCULAR: Regular rate and rhythm without murmurs, gallops, or rubs. RESPIRATORY: Clear to auscultation. Breath sounds equal bilaterally. No wheezes, rales, or rhonchi. GASTROINTESTINAL: Abdomen soft, non-tender, nondistended. EXTREMITIES: No edema or joint tenderness. BACK: Nontender without deformity or crepitance. No flank tenderness. SKIN: No rash or erythema of visible areas Initial Vital Signs Initial Vital Signs: Vital Signs Temperature 97.6 F 03/02/21 10:50 Pulse Rate 24 L 03/02/21 10:50 Respiratory Rate 18 03/02/21 10:50 Blood Pressure 166/78 H 03/02/21 10:50 Pulse Oximetry 100 03/02/21 10:50 Course Orders Ordered: ED Orders 03/02/21 10:46 CT head/brain wo con Stat EKG-12 Lead Stat 03/02/21 10:56 Basic Metabolic Panel Stat Complete Blood Count AUTO DIFF Stat 03/02/21 12:08 Urine Culture Stat Urine Microscopic Stat Reevaluation(s) Reevaluation #1: Patient in at her relative baseline for majority of visit. Family at the bedside and state they see her and state this is her baseline. Vital Signs Vital signs: Vital Signs - 8 hr 03/02/21 10:50 03/02/21 11:23 03/02/21 11:30 Temperature 97.6 F Pulse Rate 24 L 88 90 Respiratory Rate 18 17 17 Blood Pressure 166/78 H Pulse Oximetry 100 92 93 03/02/21 12:00 03/02/21 12:30 03/02/21 13:00 Temperature Pulse Rate 108 H 94 H 93 H Respiratory Rate 33 H 29 H 30 H Blood Pressure Pulse Oximetry 91 96 96 03/02/21 13:30 Temperature Pulse Rate 95 H Respiratory Rate Blood Pressure 148/68 H Pulse Oximetry 97 MDM - Seizure Lab Data Result diagrams: 03/02/21 10:56 03/02/21 10:56 Labs: Lab Results 03/02/21 03/02/21 03/02/21 Range/Units 10:56 10:56 12:08 WBC 7.9 (4.5-11.0) X10^3/uL RBC 4.94 (4.0-5.2) X10^6/uL Hgb 15.4 (12.0-16.0) g/dL Hct 47.1 H (36-46) % MCV 95.2 (80-100) fL MCH 31.1 (26-34) PG MCHC 32.7 (30-36) % RDW 13.4 (11.6-14.8) % Plt Count 226 (150-400) X10^3/uL Neut % (Auto) 62.2 (50-75) % Lymph % (Auto) 24.8 L (25-40) % [place] % (Auto) 11.1 (3-14) % Eos % (Auto) 1.5 L (2-4) % Baso % (Auto) 0.4 (0-2) % Neut # (Auto) 4900 (7814-2492) /uL Lymph # (Auto) 2000 (3880-8502) /uL [place] # (Auto) 900 (0-900) /uL Eos # (Auto) 100 (0-450) /uL Baso # (Auto) 0 (0-100) /uL Sodium 140 (137-145) mmol/L Potassium 3.9 (3.4-5.1) mmol/L Chloride 110 H (98-107) mmol/L Carbon Dioxide 19 L (22-32) mmol/L BUN 15 (7-17) mg/dL Creatinine 1.09 H (0.52-1.04) mg/dL Estimated GFR 47.7 L (>60) mL/min BUN/Creatinine Ratio 13.8 (6-22) Glucose 131 H (80-110) mg/dL Calcium 9.7 (8.4-10.2) mg/dL Urine RBC 1-5/hpf (0-5/HPF) Urine WBC 10-30/hpf H (0-5/HPF) Urine Bacteria None seen (None) Ur Culture Indicated? Specimen cultured Imaging Data CT scan - head: Radiologist's Impression: [address] [id number] Scan ReportSigned Patient: Marilou Delvalle LMR#: [id number]: 5Acct:[id number]/Sex: 85 / FDate of Service: 03/02/21Loc: EDAccession Number: [id number] Procedure: CT head/brain wo con Ordering Provider: Gurjit Gonsalves D.O. PROCEDURE: CT HEAD/BRAIN WO CON INDICATIONS: new onset seizure TECHNIQUE: Noncontrast 4.5 mm thick angled axial sections acquired from the foramen magnum to the vertex, with coronal and sagittal reformats. For radiation dose reduction, the following was used: automated exposure control, adjustment of mA and/or kV according to patient size. COMPARISON: [facility], CT, CT HEAD/BRAIN WO CON, 01/31/2019, 15:39. FINDINGS: Image quality: Partially degraded by motion artifact. CSF spaces: Basal cisterns are patent. No extra-axial fluid collections. The ventricles are symmetric in size and shape. Brain: No intracranial bleeds or masses. There is cerebral volume loss for age, with resultant ventricular and sulcal prominence. There are periventricular and deep white matter chronic small vessel ischemic changes. There is intracranial internal carotid artery atherosclerosis. Skull and face: Calvarium and visualized facial bones appear intact, without suspicious lesions. Sinuses: Visualized sinuses and mastoids are clear. IMPRESSION: 1. Volume loss and small vessel ischemic disease. 2. No acute intracranial abnormality. Dictated by: Gayle Posadas M.D. on 03/02/2021 at 10:20 Approved by: Gayle Posadas M.D. on 03/02/2021 at 10:20 [facility] Narrative Medical decision making narrative: Multiple etiologies for patient's symptoms considered including: [Seizure versus electrolyte abnormality versus infection versus subarachnoid hemorrhage versus] Patient was asymptomatic for the duration of her visit Findings and discharge diagnosis discussed with patient/family followed by verbalization of understanding Return precautions discussed with patient/family whom verbalize understanding. Discharge Plan Departure Patient Disposition: Home Clinical Impression: Seizure, Acute UTI Instructions: DI for Urinary Tract Infection (UTI), DI for Seizure (Not Epilepsy/Seizure Disorder) Activity Restrictions/Additional Instructions: *You have been diagnosed with [first-time seizure, acute urinary tract infection] *What to do: *Please continue to take your regular medications as directed. [ x] New medication prescriptions sent to your pharmacy: [[facility] in [place] ] [ ] New medication written as a paper prescription [ ] No new medications given *Please follow up with your primary care provider in 2-3 days, call for an appointment. Let them know you were seen in the Emergency Department and that we ask that you be seen in follow up. We will electronically transmit a record of today's note if your PCP is in our system *If you do not have a primary care provider please contact the [facility] Resource line at [phone]. They will ask some questions about your medical history and help get you set up with a doctor in the community. *Return to Emergency Department if you should have any new, worsening or concerning symptoms, such as [fever greater than 101 F, shaking chills, worsening pain, persistent vomiting or other bothersome symptoms] Prescriptions: New cephalexin 500 mg capsule 500 mg PO Q6H 7 Days Qty: 28 RF: 0 No Action Antacid Anti-Gas 30 ml PO Q4H PRN (Reason: nausea or heartburn) RF: 0 acetaminophen 650 mg Suppository 650 mg VT Q4H MDD 3 gm PRN (Reason: Fever Or Pain) RF: 0 magnesium hydroxide [Milk of Magnesia] 400 mg/5 mL Suspension 30 ml PO PRN PRN (Reason: Constipation) RF: 0 bisacodyl 10 mg Suppository 10 mg VT PRN PRN (Reason: Constipation) RF: 0 bismuth subsalicylate [Pepto-Bismol] 262 mg/15 mL Suspension 30 ml PO PRN PRN (Reason: Diarrhea) RF: 0 ondansetron 4 mg Tablet,Disintegrating 4 mg PO Q4H PRN (Reason: Nausea And Vomiting) RF: 0 dimethicone [Cavilon Durable Barrier] 1.3 % Cream 1 applic Topical DIRECTED RF: 0 Enema 133 ml VT PRN PRN (Reason: Constipation) RF: 0 acetaminophen 325 MG tablet 650 mg PO Q4H MDD 3 gm PRN (Reason: Fever Or Pain) RF: 0 lorazepam 0.5 MG tablet 0.5 tab PO BID PRN (Reason: Anxiety) RF: 0 Referrals: Anya Jesus MD [Primary Care Provider] -
[2021-03-02 11:17] LABS: Add Manual Diff / Slide Review NO; Basophils Absolute Auto 0 /uL (0-100); Basophils Percent Auto 0.4 % (0-2); Eosinophils Absolute Auto 100 /uL (0-450); Eosinophils Percent Auto 1.5 % (2-4); Hematocrit 47.1 % (36-46); Hemoglobin 15.4 g/dL (12.0-16.0); Lymphocytes Absolute Auto 2000 /uL (1100-4500); Lymphocytes Percent Auto 24.8 % (25-40); Mean Corpuscular HGB Conc 32.7 % (30-36); Mean Corpuscular Hemoglobin 31.1 PG (26-34); Mean Corpuscular Volume 95.2 fL (80-100); Monocytes Absolute Auto 900 /uL (0-900); Monocytes Percent Auto 11.1 % (3-14); Neutrophils Absolute Auto 4900 /uL (1500-7000); Neutrophils Percent Auto 62.2 % (50-75); Platelet Count 226 X10^3/uL (150-400); Red Blood Cell Count 4.94 X10^6/uL (4.0-5.2); Red Cell Distribution Width 13.4 % (11.6-14.8); White Blood Cell Count 7.9 X10^3/uL (4.5-11.0)
[2021-03-02 11:21] LABS: BUN Creatinine Ratio 13.8 (6-22); Blood Urea Nitrogen 15 mg/dL (7-17); Calcium 9.7 mg/dL (8.4-10.2); Carbon Dioxide 19 mmol/L (22-32); Chloride 110 mmol/L (98-107); Estimated Glomerular Filt Rate 47.7 mL/min (>60); Glucose 131 mg/dL (80-110); HEMOLYSIS < 15 (0-50); Potassium 3.9 mmol/L (3.4-5.1); Sodium 140 mmol/L (137-145)
[2021-03-02 12:20] LABS: Bacteria Urine None Seen
[2021-03-02 12:33] LABS: Culture Indicated Urine Specimen Cultured; RBC Urine 1-5/HPF (0-5/HPF); WBC Urine 10-30/HPF (0-5/HPF)
== END 2021-03-02 13:47 | disposition home or self-care (01) ==
PROVIDERS: Emergency Provider Emergency Medicine; PCP Internal Medicine
DX: R56.9 Unspecified convulsions (principal); N39.0 Urinary tract infection, site not specified
CPT/HCPCS: 36415; 70450; 80048; 81015; 85025; 87077; 87086; 93005; 99283; 99284

== ENCOUNTER 2021-05-18 09:31 | Emergency (ER) | payer MEDICARE, SELFPAY ==
[2021-05-18] VITALS (9 sets, daily range): BP systolic 91–156; BP diastolic 63–98; PULSE 85–119; RESP 13–23; TEMP 36.9; O2SAT 90–94
[2021-05-18 09:56] LABS: Add Manual Diff / Slide Review NO; Basophils Absolute Auto 100 /uL (0-100); Basophils Percent Auto 1.1 % (0-2); Eosinophils Absolute Auto 200 /uL (0-450); Eosinophils Percent Auto 3.5 % (2-4); Hematocrit 45.3 % (36-46); Hemoglobin 14.6 g/dL (12.0-16.0); Lymphocytes Absolute Auto 2600 /uL (1100-4500); Lymphocytes Percent Auto 42.8 % (25-40); Mean Corpuscular HGB Conc 32.4 % (30-36); Mean Corpuscular Hemoglobin 30.7 PG (26-34); Mean Corpuscular Volume 94.9 fL (80-100); Monocytes Absolute Auto 700 /uL (0-900); Monocytes Percent Auto 10.6 % (3-14); Neutrophils Absolute Auto 2600 /uL (1500-7000); Platelet Count 268 X10^3/uL (150-400); Red Blood Cell Count 4.77 X10^6/uL (4.0-5.2); White Blood Cell Count 6.2 X10^3/uL (4.5-11.0)
[2021-05-18] MEDS: levETIRAcetam 1,000 MG in SODIUM CHLORIDE 0.9% 100 ML 440 ML IV (10:07)
--- NOTE | 2021-05-18 10:17 | PC.NURSE ---
Daughter at bedside, states she sees her mother daily. Daughter reports mother had agrand mal seizure roughly 6 weeks ago, states mother had UTI at that time and was treated accordingly for the infection.
--- NOTE | 2021-05-18 10:28 | ED.SEIZURE ---
HPI - Seizure General Chief Complaint: Seizure Stated Complaint: seizure Time Seen by Provider: 05/18/21 09:47 Source: EMS Mode of arrival: EMS History of Present Illness HPI Narrative: In by ambulance from residence at [facility]. Blood sugar 119. Witnessed generalized tonic-clonic seizure by the staff. Patient is current postictal. Patient is not on any seizure medications. Had similar episode according to daughter, at bedside of his seizure back in January of this year and had diagnosis of UTI. Patient is DNR DNI. However according to daughter patient does not want to be on any medications. But was amenable for antibiotics for UTI last visit. Patient did have CT scan the head at that time. At this time had daughter agrees with blood work and urine analysis. As well as Keppra. Patient is postictal. Otherwise no recent illness. No falls or injuries. Patient has had 6 brain CTs this [place] [address] CT Scan Report Signed Patient: Marilou Delvalle MR#: [id number] : 1935 Acct:[id number] Age/Sex: 85 / F Date of Service: 03/02/21 Loc: ED Accession Number: [id number] ?? Procedure: CT head/brain wo con Ordering Provider: Gurjit Gonsalves D.O. PROCEDURE:? CT HEAD/BRAIN WO CON ? INDICATIONS:? new onset seizure ? TECHNIQUE:? Noncontrast 4.5 mm thick angled axial sections acquired from the foramen magnum to the vertex, with coronal and sagittal reformats.? For radiation dose reduction, the following was used:? automated exposure control, adjustment of mA and/or kV according to patient size.? ? COMPARISON:? [facility], CT, CT HEAD/BRAIN WO CON, 01/31/2019, 15:39. ? FINDINGS:? Image quality:? Partially degraded by motion artifact. ? CSF spaces:? Basal cisterns are patent.? No extra-axial fluid collections.? The ventricles are symmetric in size and shape.? ? Brain:? No intracranial bleeds or masses.? There is cerebral volume loss for age, with resultant ventricular and sulcal prominence.? There are periventricular and deep white matter chronic small vessel ischemic changes.? There is intracranial internal carotid artery atherosclerosis.? ? Skull and face:? Calvarium and visualized facial bones appear intact, without suspicious lesions.? ? Sinuses:? Visualized sinuses and mastoids are clear.? ? IMPRESSION:? 1. Volume loss and small vessel ischemic disease. 2. No acute intracranial abnormality.? ? ? Dictated by: Gayle Posadas M.D. on 03/02/2021 at 10:20 ? ? Approved by: Gayle Posadas M.D. on 03/02/2021 at 10:20 ? Related Data Home Medications Medication Instructions Recorded Confirmed Antacid Anti-Gas 30 ml PO Q4H PRN 09/07/18 09/07/18 Enema 133 ml TN PRN PRN 09/07/18 09/07/18 acetaminophen 325 mg tablet 650 mg PO Q4H PRN MDD 3 gm 09/07/18 09/07/18 acetaminophen 650 mg rectal 650 mg TN Q4H PRN MDD 3 gm 09/07/18 09/07/18 suppository bisacodyl 10 mg rectal suppository 10 mg TN PRN PRN 09/07/18 09/07/18 bismuth subsalicylate 262 mg/15 mL 30 ml PO PRN PRN 09/07/18 09/07/18 oral suspension (Pepto-Bismol) dimethicone 1.3 % topical cream 1 applic TOPICAL DIRECTED 09/07/18 09/07/18 (Cavilon Durable Barrier) lorazepam 0.5 mg tablet 0.5 tab PO BID PRN 09/07/18 09/07/18 magnesium hydroxide 400 mg/5 mL 30 ml PO PRN PRN 09/07/18 09/07/18 oral suspension (Milk of Magnesia) ondansetron 4 mg disintegrating 4 mg PO Q4H PRN 09/07/18 09/07/18 tablet Previous Rx's Medication Instructions Recorded cephalexin 500 mg capsule 500 mg PO BID #10 cap 05/18/21 Allergies Allergy/AdvReac Type Severity Reaction Status Date / Time lisinopril Allergy Severe AIRWAY Verified 03/02/21 12:52 BLOCKAGE adhesive Allergy Unknown FROM TAPE Verified 03/02/21 12:52 Review of Systems Review of Systems Narrative: GENERAL: Denies chills, fatigue, malaise, fever, sweats. HEENT: Denies sinus pain, ear pain, sore throat RESPIRATORY: Denies dyspnea, cough CARDIOVASCULAR: Denies chest pain, palpitations GASTROINTESTINAL: Denies nausea, vomiting, abdominal pain : Denies dysuria, frequency, hematuria MUSCULOSKELETAL: denies muscle or bony pain SKIN: Denies rash, skin lesions NEUROLOGIC: Denies weakness, numbness ROS reviewed and attain by effects daughter ROS Unobtainable: All systems reviewed & are unremarkable except as noted in HPI and below Patient History Surgical History History of bladder suspension procedure History of tonsillectomy Family History Father Cancer Social History Smoking Status: Unknown if ever smoked Smoking Status: Unknown if ever smoked alcohol intake frequency: 0-2 drinks per day Substance Use Type: does not use Exam Narrative Exam Narrative: GENERAL: in no distress, not toxic not dyspneic HEAD: Normocephalic. Nontender scalp and face. EYES: Pupils equal round No scleral icterus. ENT: Mucous membranes moist. NECK: Trachea midline. CARDIOVASCULAR: Regular rate and rhythm without murmurs RESPIRATORY: Clear to auscultation. Breath sounds equal bilaterally. No wheezes, rales, or rhonchi. GASTROINTESTINAL: Abdomen soft, non-tender EXTREMITIES: No gross deformities. BACK: No flank tenderness. NEURO: Patient currently postictal. Cooperative but not following commands. SKIN: Warm and dry PSYCH: is cooperative Initial Vital Signs Initial Vital Signs: Vital Signs Pulse Rate 113 H 05/18/21 09:35 Respiratory Rate 17 05/18/21 09:35 Pulse Oximetry 90 L 05/18/21 09:35 Course Course Course Narrative: No new issues during course of stay Orders Ordered: ED Orders 05/18/21 09:40 Complete Blood Count AUTO DIFF Stat Comprehensive Metabolic Panel Stat 05/18/21 10:48 Urinalysis and Microscopic Stat Discontinued Medications Levetiracetam 1,000 mg/ Sodium (Chloride) 110 mls @ 440 mls/hr IV NOW ONE Stop: 05/18/21 09:55 Last Infusion: 05/18/21 11:04 Dose: 0 mls/hr Documented by: АННА Admin: 05/18/21 10:07 Dose: 440 mls/hr Documented by: АННА Ceftriaxone Sodium 1,000 mg/ (Sodium Chloride) 100 mls @ 200 mls/hr IV NOW ONE Stop: 05/18/21 11:17 Last Admin: 05/18/21 11:24 Dose: 200 mls/hr Documented by: АННА Reevaluation(s) Reevaluation #1: Patient at baseline per daughter at bedside. She desires for patient to be discharged back to facility. Daughter does not want seizure medication, but does agree with antibiotic for UTI. Does not want any further studies or referral for new seizure workup Time: 11:13 Vital Signs Vital signs: Vital Signs - 8 hr 05/18/21 09:35 05/18/21 09:42 05/18/21 10:00 Temperature 98.4 F Pulse Rate 113 H 119 H 100 H Respiratory Rate 17 18 17 Blood Pressure 139/98 H 119/77 Pulse Oximetry 90 L 90 L 92 05/18/21 10:30 05/18/21 10:31 05/18/21 11:00 Temperature Pulse Rate 97 H 97 H 102 H Respiratory Rate 23 20 18 Blood Pressure 91/63 Pulse Oximetry 92 92 91 05/18/21 11:01 05/18/21 11:30 05/18/21 12:09 Temperature Pulse Rate 103 H 97 H 85 Respiratory Rate 18 13 14 Blood Pressure 154/75 H 156/90 H 118/71 Pulse Oximetry 93 94 92 MDM - Seizure Differential Diagnosis Differential diagnosis: Likely generalized seizure and other (UTI induced seizure) Lab Data Result diagrams: 05/18/21 09:40 05/18/21 09:40 Labs: Lab Results 05/18/21 05/18/21 05/18/21 Range/Units 09:40 09:40 10:48 WBC 6.2 (4.5-11.0) X10^3/uL RBC 4.77 (4.0-5.2) X10^6/uL Hgb 14.6 (12.0-16.0) g/dL Hct 45.3 (36-46) % MCV 94.9 (80-100) fL MCH 30.7 (26-34) PG MCHC 32.4 (30-36) % RDW 13.0 (11.6-14.8) % Plt Count 268 (150-400) X10^3/uL Neut % (Auto) 42.0 L (50-75) % Lymph % (Auto) 42.8 H (25-40) % [place] % (Auto) 10.6 (3-14) % Eos % (Auto) 3.5 (2-4) % Baso % (Auto) 1.1 (0-2) % Neut # (Auto) 2600 (4638-7616) /uL Lymph # (Auto) 2600 (9996-0888) /uL [place] # (Auto) 700 (0-900) /uL Eos # (Auto) 200 (0-450) /uL Baso # (Auto) 100 (0-100) /uL Sodium 139 (137-145) mmol/L Potassium 3.7 (3.4-5.1) mmol/L Chloride 107 (98-107) mmol/L Carbon Dioxide 17 L (22-32) mmol/L BUN 11 (7-17) mg/dL Creatinine 0.84 (0.52-1.04) mg/dL Estimated GFR > 60.0 (>60) mL/min BUN/Creatinine Ratio 13.1 (6-22) Glucose 111 H (80-110) mg/dL Calcium 9.1 (8.4-10.2) mg/dL Total Bilirubin 0.6 (0.2-1.3) mg/dL AST 34 (14-36) IU/L ALT 34 (<35) IU/L Alkaline Phosphatase 106 (38-126) U/L Total Protein 7.0 (6.3-8.2) g/dL Albumin 3.7 (3.5-5.0) g/dL Globulin 3.3 (1.7-4.1) g/dL Albumin/Globulin Ratio 1.1 (1.0-2.8) Urine Color Yellow Urine Appearance Cloudy Urine pH 6.0 (4.5-8.0) Ur Specific [place] 1.020 (1.000-1.035) Urine Protein Trace H (Negative) Urine Glucose (UA) Negative (Negative) g/dL Urine Ketones Negative (NEGATIVE) Urine Occult Blood 1+ H (Negative) Urine Nitrate Negative (Negative) Urine Bilirubin Negative (NEGATIVE) Urine Urobilinogen 0.2 (0.2) E.U./dL Ur Leukocyte Esterase Trace H (NEGATIVE) Urine RBC 1-5/hpf (0-5/HPF) Urine WBC 5-10/hpf H (0-5/HPF) Ur Squamous Epith Cells 5-10 /hpf H (0-5/HPF) Amorphous Sediment 1+ Urine Bacteria Moderate (10-30) H (None) Urine Mucus 1+ H (Negative) Ur Culture Indicated? Cult not indicated Point of Care Testing Glucose POC 119 MDM Narrative Medical decision making narrative: Appropriate for discharge home. Reviewed with power lead recreation assistant, daughter, does not want any further studies or workup or any referrals. No anti seizure medication. But does agree with antibiotic Discharge Plan Departure Patient Disposition: Home Clinical Impression: Generalized seizure, Acute UTI Instructions: DI for Seizure Disorder -- Adult, DI for Urinary Tract Infection (UTI) Activity Restrictions/Additional Instructions: See family doctor next week for recheck. Continue antibiotic this evening. Take antibiotic for 5 days. It is taken twice a day. Return if worsening questions or concerns. Prescriptions: New cephalexin 500 mg capsule 500 mg PO BID Qty: 10 RF: 0 No Action Antacid Anti-Gas 30 ml PO Q4H PRN (Reason: nausea or heartburn) RF: 0 acetaminophen 650 mg Suppository 650 mg TN Q4H MDD 3 gm PRN (Reason: Fever Or Pain) RF: 0 magnesium hydroxide [Milk of Magnesia] 400 mg/5 mL Suspension 30 ml PO PRN PRN (Reason: Constipation) RF: 0 bisacodyl 10 mg Suppository 10 mg TN PRN PRN (Reason: Constipation) RF: 0 bismuth subsalicylate [Pepto-Bismol] 262 mg/15 mL Suspension 30 ml PO PRN PRN (Reason: Diarrhea) RF: 0 ondansetron 4 mg Tablet,Disintegrating 4 mg PO Q4H PRN (Reason: Nausea And Vomiting) RF: 0 dimethicone [Cavilon Durable Barrier] 1.3 % Cream 1 applic Topical DIRECTED RF: 0 Enema 133 ml TN PRN PRN (Reason: Constipation) RF: 0 acetaminophen 325 MG tablet 650 mg PO Q4H MDD 3 gm PRN (Reason: Fever Or Pain) RF: 0 lorazepam 0.5 MG tablet 0.5 tab PO BID PRN (Reason: Anxiety) RF: 0 Referrals: Anya Jesus MD [Primary Care Provider] -
--- NOTE | 2021-05-18 10:30 | PC.NURSE ---
Placed pt on 3L O2 to increase sat to >92
[2021-05-18 11:06] LABS: Albumin 3.7 g/dL (3.5-5.0); Albumin Globulin Ratio 1.1 (1.0-2.8); Alkaline Phosphatase 106 U/L (38-126); Aspartate Aminotransferase 34 IU/L (14-36); BUN Creatinine Ratio 13.1 (6-22); Bilirubin Total 0.6 mg/dL (0.2-1.3); Blood Urea Nitrogen 11 mg/dL (7-17); Calcium 9.1 mg/dL (8.4-10.2); Carbon Dioxide 17 mmol/L (22-32); Chloride 107 mmol/L (98-107); Estimated Glomerular Filt Rate > 60.0 mL/min (>60); Globulin 3.3 g/dL (1.7-4.1); Glucose 111 mg/dL (80-110); HEMOLYSIS 16 (0-50); Potassium 3.7 mmol/L (3.4-5.1); Sodium 139 mmol/L (137-145)
[2021-05-18 11:06] LABS: Amorphous Sediment Urine 1+; Appearance Urine UA CLOUDY; Bacteria Urine Moderate (10-30); Bilirubin Urine UA NEGATIVE (NEGATIVE); Color Urine UA YELLOW; Glucose Urine UA NEGATIVE (Negative); Ketones Urine UA NEGATIVE (NEGATIVE); Leukocyte Esterase Urine UA TRACE (NEGATIVE); Mucus Urine 1+ (Negative); Nitrite Urine UA NEGATIVE (Negative); Occult Blood Urine UA 1+ (Negative); Protein Urine UA TRACE (Negative); RBC Urine 1-5/HPF (0-5/HPF); Squamous Epithelial Cell Urine 5-10 /HPF (0-5/HPF); Urobilinogen Urine UA 0.2 E.U./dL (0.2); WBC Urine 5-10/HPF (0-5/HPF)
[2021-05-18 11:08] LABS: Culture Indicated Urine Cult Not Indicated
[2021-05-18 11:12] LABS: Alanine Aminotransferase 34 IU/L (<35)
[2021-05-18] MEDS: cefTRIAXone 1,000 MG in SODIUM CHLORIDE 0.9% 100 ML 200 ML IV (11:24)
--- NOTE | 2021-05-22 16:20 | PC.NURSE ---
Addendum entered by Syeda Camejo R.N. 05/23/21 07:59: Delayed entry. Ceftriaxone Sodium 1,000 mg stopped at 1224. 05/18/21 Original Note: Ceftriaxone Sodium 1,000 mg stopped at 1224. 05/18/21
== END 2021-05-18 12:11 | disposition home or self-care (01) ==
PROVIDERS: Emergency Provider Emergency Medicine; PCP Internal Medicine
DX: R56.9 Unspecified convulsions (principal); N39.0 Urinary tract infection, site not specified
CPT/HCPCS: 36415; 80053; 81001; 85025; 96365; 96367; 99284; J0696; J1953

== ENCOUNTER → 2023-03-12 09:51 | Outpatient (CLI) | payer MEDICARE, SELFPAY ==
[2023-03-12 11:33] LABS: Add Manual Diff / Slide Review NO; Basophils Absolute Auto 100 /uL (0-100); Basophils Percent Auto 1.1 % (0-2); Eosinophils Absolute Auto 100 /uL (0-450); Eosinophils Percent Auto 2.3 % (2-4); Hematocrit 45.2 % (36-46); Hemoglobin 15.4 g/dL (12.0-16.0); Lymphocytes Absolute Auto 800 /uL (1100-4500); Lymphocytes Percent Auto 14.4 % (25-40); Mean Corpuscular Hemoglobin 31.8 PG (26-34); Mean Corpuscular Volume 93.4 fL (80-100); Monocytes Absolute Auto 700 /uL (0-900); Monocytes Percent Auto 13.1 % (3-14); Neutrophils Absolute Auto 3800 /uL (1500-7000); Neutrophils Percent Auto 69.1 % (50-75); Platelet Count 192 X10^3/uL (150-400); Red Blood Cell Count 4.84 X10^6/uL (4.0-5.2); Red Cell Distribution Width 13.7 % (11.6-14.8); White Blood Cell Count 5.5 X10^3/uL (4.5-11.0)
[2023-03-12 12:10] LABS: Alanine Aminotransferase 185 IU/L (<35); Albumin 3.8 g/dL (3.5-5.0); Albumin Globulin Ratio 1.1 (1.0-2.8); Alkaline Phosphatase 167 U/L (38-126); Aspartate Aminotransferase 92 IU/L (14-36); BUN Creatinine Ratio 19.8 (6-22); Blood Urea Nitrogen 20 mg/dL (7-17); C-Reactive Protein Quant 5.5 mg/dL (<1.0); Carbon Dioxide 26 mmol/L (22-32); Chloride 106 mmol/L (98-107); Estimated Glomerular Filt Rate 54 mL/min (>60); Globulin 3.5 g/dL (1.7-4.1); Glucose 115 mg/dL (80-110); HEMOLYSIS 18 (0-50); Potassium 3.8 mmol/L (3.4-5.1); Sodium 141 mmol/L (137-145); Total Protein 7.3 g/dL (6.3-8.2)
== END ==
PROVIDERS: PCP Internal Medicine; Referring Provider Internal Medicine; Visit Provider Internal Medicine
DX: R41.82 Altered mental status, unspecified (principal); G40.89 Other seizures
CPT/HCPCS: 36415; 80053; 85025; 86140

== ENCOUNTER → 2023-03-26 10:54 | Outpatient (CLI) | payer MEDICARE, SELFPAY ==
[2023-03-26 12:59] LABS: Alanine Aminotransferase 47 IU/L (<35); Albumin 3.6 g/dL (3.5-5.0); Alkaline Phosphatase 115 U/L (38-126); Aspartate Aminotransferase 29 IU/L (14-36); BUN Creatinine Ratio 17.4 (6-22); Bilirubin Total 0.6 mg/dL (0.2-1.3); Blood Urea Nitrogen 15 mg/dL (7-17); Carbon Dioxide 28 mmol/L (22-32); Chloride 106 mmol/L (98-107); Estimated Glomerular Filt Rate > 60 mL/min (>60); Globulin 3.6 g/dL (1.7-4.1); Glucose 133 mg/dL (80-110); HEMOLYSIS < 15 (0-50); Potassium 3.8 mmol/L (3.4-5.1); Sodium 142 mmol/L (137-145); Total Protein 7.2 g/dL (6.3-8.2)
== END ==
PROVIDERS: PCP Internal Medicine; Referring Provider Nurse Practitioner Family; Visit Provider Nurse Practitioner Family
DX: R74.01 Elevation of levels of liver transaminase levels (principal); G40.89 Other seizures
CPT/HCPCS: 36415; 80053